=== PATIENT | female | born 1955 | race Caucasian/White ===

== ENCOUNTER → 2025-05-12 | Outpatient (CLI) | payer SELFPAY ==
[2025-05-12 12:38] LABS: Hematocrit 46.3 % (37-47); Hemoglobin 15.7 g/dL (12.0-15.0); Immature Granulocytes Count 0.010 X10^3/uL (0.0-0.0); Mean Corp Hgb Conc 33.9 g/dL (32-36); Mean Corpuscular Volume 95.5 fL (81-99); Mean Platelet Vol. 10.5 fl (6.2-12.0); NRBC Flagged by Analyzer 0 % (0-5); Platelet Count 231 K/mm3 (150-450); RBC Distribution Width CV 13.5 % (11.6-14.6); RBC Distribution Width SD 48.0 fl (35.1-43.9); Red Blood Count 4.85 M/mm3 (4.2-5.4); White Blood Count 7.4 K/mm3 (4.4-11.0)
[2025-05-12 13:43] LABS: AST(SGOT) 27 U/L (<=31); Alanine Aminotransfer ALT/SGPT 22 U/L (<=34); Albumin, Serum 4.2 g/dL (3.4-4.8); Alkaline Phosphatase 84 U/L (35-104); Anion Gap 10 (5-15); BUN 29 mg/dL (4-19); BUN/Creat Ratio 41.2 RATIO (10-20); Calcium,Total 9.8 mg/dL (7.6-11.0); Carbon Dioxide 27.5 mmol/L (21.0-32.0); Chloride 102 mmol/L (98-108); Globulin 2.5 g/dL (2.2-4.2); Glucose 98 mg/dL (70-99); Magnesium 2.4 mg/dL (1.5-2.2); Potassium 4.4 mmol/L (3.3-5.1); Vitamin B12 1114 pg/mL (180-914); Vitamin D,25 Hydroxy 52.7 ng/mL (30-100)
== END | disposition home or self-care (01) ==
LOC: BFHLAB 10:48
PROVIDERS: PCP Nurse Practitioner Family; Referring Provider Nurse Practitioner Family; Visit Provider Nurse Practitioner Family
DX: Z00.01 Encounter for general adult medical examination with abnormal findings (principal)
CPT/HCPCS: 36415; 80053; 82306; 82607; 83735; 85025

== ENCOUNTER → 2025-05-25 | Outpatient (CLI) | payer SELFPAY ==
--- NOTE | 2025-05-25 14:12 | MRI_ITS ---
PROCEDURE: LOWER EXT JOINT ONLY (ROUTINE) 05/25/2025 REASON FOR EXAM: PAIN IN RIGHT HIP TECHNIQUE: Procedure Code: MRILEJ Modality: MR Procedure: LOWER EXT JOINT ONLY (ROUTINE) Multiplanar and multisequence images were obtained without IV contrast administration. 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 The femoral heads show no obvious structural collapse. Increased signal of the superior acetabular labrum. No marrow infiltrative lesions Moderate right hip joint effusion with synovial hypertrophy. Mild left hip joint effusion with no synovial hypertrophy. Soft tissue edema signal seen along the greater trochanteric bursae. Increased signal of the gluteus Medius tendons insertion. Thickened common hamstring tendons insertion showing high signal, right more evident than left. The rest of the visualized muscles appear normal. Mottled marrow signal of the examined bones, possibly osteoporotic. Unremarkable urinary bladder. No pelvic collections. 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 Moderate right hip joint effusion with synovial hypertrophy. Mild left hip joint effusion with no synovial hypertrophy. Bilateral greater trochanteric bursitis. Bilateral gluteus Medius and common hamstring tendonitis. Reading [facility] [address]
--- NOTE | 2025-05-25 14:12 | MRI_ITS ---
PROCEDURE: LOWER EXT JOINT ONLY (ROUTINE) 05/25/2025 REASON FOR EXAM: PAIN IN RIGHT KNEE TECHNIQUE: T1, T2, PD, MRI right knee Multiplanar and multisequence images were obtained without IV contrast administration. COMPARISON: COMPARISON : None FINDINGS: Bone Marrow: There is no bony contusion or occult fracture. There is a 0.6 cm developing osteochondral defect in the medial femoral condyle with no free fragment. Cruciate ligaments: There is increased T2 signal and attenuation in the anterior cruciate ligament without laxity, grade 2 sprain. The posterior cruciate appears intact. Collateral ligaments: The medial collateral ligament appears intact. The lateral collateral ligament complex appears intact. Menisci: The lateral meniscus appears intact. There is a complex tear in the posterior horn and body of the medial meniscus with a horizontal component extending to the tibial surface. Effusion: There is no significant effusion. There is no Cotton's cyst. Extensor mechanism: The distal quadriceps and patellar tendons appear intact. MRI/Lower Ext Joint Only (Routine) IMPRESSION: There is increased T2 signal and attenuation in the anterior cruciate ligament without laxity, grade 2 sprain. There is a complex tear in the posterior horn and body of the medial meniscus w ith a horizontal component extending to the tibial surface. Reading Location: [facility]
== END | disposition home or self-care (01) ==
LOC: MRI 13:51
PROVIDERS: PCP Nurse Practitioner Family; Referring Provider Nurse Practitioner Family; Visit Provider Nurse Practitioner Family
DX: M25.561 Pain in right knee (principal); M25.551 Pain in right hip
CPT/HCPCS: 73721

== ENCOUNTER 2025-07-12 19:51 | Emergency (ER) | payer SELFPAY ==
[2025-07-12 19:51] VITALS: BP 193/110; PULSE 82; RESP 16; TEMP 36.6; O2SAT 99
[2025-07-12 20:21] VITALS: BMI 28.0
--- NOTE | 2025-07-12 20:34 | EDS_ITS ---
HPI History of Present Illness Chief Complaint: Abd Pain Narrative Narrative: 69-year-old female who denies significant past medical history presents with suprapubic to left-sided flank pain that began a few hours ago. Its improved since then. She states that it was more of a sharp stabbing pain that she was having intravaginally and radiating upwards, perhaps more to the left. She denies any fevers or chills, no dysuria or hematuria, no exacerbating or alleviating factors. She did note that she had an episode like this within the last week that only lasted about an hour. She was nauseated but did not vomit. No problems with bowel movements, no diarrhea. [facility] Medical History Atherosclerotic heart disease of [place] coronary artery without angina pectoris Hyperlipidemia History of [place] (myocardial infarction) (~2005) Home Medications ?Medication ?Instructions ?Recorded ?Last Taken ?Type amlodipine 5 mg tablet 5 mg PO DAILY #14 tabs 07/12 Unknown Rx Allergy/AdvReac Type Severity Reaction Status Date / Time Iodinated Contrast Media AdvReac Unknown Difficulty Verified 07/12/25 19:54 (IVP dye) breathing Surgical History History of esophagogastroduodenoscopy (EGD) Scar tissue History of appendectomy Social History Smoking Status: Never smoker substance use type: does not use ROS ROS ED ROS Narrative Review of systems positive for suprapubic to left sided abdominal pain/flank pain. No dysuria or hematuria. No fevers or chills. Positive nausea but no vomiting. EXAM Physical Exam Narrative Exam Narrative: Afebrile. Vital signs noted. Nontoxic-appearing. Cardiovascular exam regular rate and rhythm. Lungs are clear to auscultation bilaterally. Abdomen is soft with minimal tenderness to palpation in the suprapubic area, no rebound or guarding. Positive bowel sounds. No CVA tenderness to percussion bilaterally. Const Vital Signs: 07/12/25 19:51 07/12/25 21:51 Temperature 97.8 F Temperature Source Temporal Pulse Rate 82 70 Respiratory Rate 16 18 Blood Pressure 193/110 H 154/91 H Blood Pressure Mean 137 112 Pulse Ox 99 Oxygen Delivery Method Room Air MDM MDM MDM Narrative Medical decision making narrative: Differential diagnosis includes but not limited to ureterolithiasis versus cystitis versus pyelonephritis versus diverticulitis. History and physical does not support diverticulitis patient not having problems with bowel movements. I reviewed her laboratory work and she has a normal white count of 9.2 with hemoglobin 16.2, hematocrit 45.9, platelet count 201. BMP is remarkable for glucose of 143 with BUN of 36 and creatinine 0.98. Sodium and potassium normal. Urinalysis is negative for ketones, negative for infection with 0-5 WBCs and 0- 5 RBCs. 0 bacteria. I do not feel antibiotics are indicated. I reviewed the radiology report of the CT of the abdomen and pelvis without contrast, there is no obstructive uropathy, no hydronephrosis, no acute process. After Toradol, her pain has improved. I am unsure to the cause of her suprapubic to left flank pain. However, I do feel she can be discharged safely home with follow-up. She had fluctuating blood pressure, initially 193/110, then down to 154/91. She is asymptomatic with this without chest pain or shortness of breath. She was told to keep a log of her blood pressures and she states that she is had readings of 147 with elevated diastolic in the past. Although she is asymptomatic, with her fluctuating blood pressure as high as 188 systolic, she was given an amlodipine 5 mg tablet here and prescription written to take daily for the next 2 weeks. She should follow-up with her primary care provider within the next 1 to 2 weeks. Return instructions to the emergency department were reviewed. Disposition is discharged home in stable condition. History & Record Review Discussion w/independent historian: Patient Additional record(s) reviewed:: Prior ED visit (No prior ED visits) Lab Data Attestation: I reviewed the patient's lab results. Labs: Laboratory Results - last 24 hr 07/12/25 20:30 WBC 9.2 RBC 4.98 Hgb 16.2 H Hct 45.9 MCV 92.2 MCH 32.5 H MCHC 35.3 RDW Std Deviation 45.6 H RDW Coeff of Adolfo 13.4 Plt Count 201 MPV 9.6 Immature Gran % (Auto) 0.300 Neut % (Auto) 87.4 H Lymph % (Auto) 7.9 L Cameron % (Auto) 4.1 Eos % (Auto) 0.1 Baso % (Auto) 0.2 Absolute Neuts (auto) 8.0 H Absolute Lymphs (auto) 0.73 L Nucleated RBC % 0 Sodium 139 Potassium 4.2 Chloride 103 Carbon Dioxide 22.7 Anion Gap 13 BUN 36 H Creatinine 0.98 Estim Creat Clear Calc 47.62 L Est GFR (MDRD) Non-Af 63 BUN/Creatinine Ratio 36.7 H Glucose 143 H Calcium 9.8 Urine Color Yellow Urine Clarity Clear Urine pH 7.0 Ur Specific [place] 1.010 Urine Protein 30 H Urine Glucose (UA) Normal Urine Ketones Negative Urine Occult Blood 50 H Urine Nitrite Negative Urine Bilirubin Negative Urine Urobilinogen Normal Ur Leukocyte Esterase Negative Urine RBC 0-5 SEEN Urine WBC 0-5 SEEN Ur Squamous Epith Cells 0 SEEN Urine Bacteria 0 SEEN Urine Mucus 0 SEEN Radiography Diagnostic Testing: Clinical Impression(s) from Imaging Studies Abdomen/Pelvis CT 07/12/25 20:46 IMPRESSION: No nephrolithiasis or obstructive uropathy. Reading Location: [address] Discharge Plan Triage Chief Complaint: Abd Pain ED Provider: Curt Quiñones Dx/Rx/DC Orders Clinical Impression: Abdominal pain, Flank pain, Elevated blood pressure reading without diagnosis of hypertension Instructions: ED Abdominal Pain Unkn Cause Fem, ED Hypertension, To Be Confirmed, ED Pelvic Pain, Unknown Cause Prescriptions: New amlodipine 5 mg tablet 5 mg PO DAILY Qty: 14 0RF Primary Care Provider: Brooke Richardson Referrals: Brooke Richardson, [facility] [Primary Care Provider, Family Practice] - As soon as possible Activity Restrictions/Additional Instructions: Keep a log of your blood pressures for your primary care provider. You may need to start medication regarding your blood pressure should it be consistently elevated. Return with fever, increased pain, new or worsening symptoms. Print Language: Mongolian Disposition Disposition: Home, Self Care
--- OUTSIDE RECORDS SUMMARY | 2025-07-12 20:37 | XMS RPT_ITS | CCD ---
Author Organization [facility] Care Team Providers Care Wax Pattern Coater Name Role Phone AYLA RENEE Attending Unavailable AYLA RENEE Primary Care Unavailable AYLA RENEE Admitting Unavailable Dylan AUTOMOTIVE REFINISH TECHNICIAN-C, Brooke Primary Care Provider Dylan AUTOMOTIVE REFINISH TECHNICIAN-C, Brooke Attending Provider Dylan AUTOMOTIVE REFINISH TECHNICIAN-C, Brooke Referring Provider Dylan, Brooke Referring Unavailable Dylan, Brooke Primary Care Unavailable Dylan, Brooke Attending Unavailable Dylna, Brooke Referring Unavailable Dylan, Brooke Primary Care Unavailable Dylan, Brooke Attending Unavailable Asaf DIETZ, Harshal Moses Unavailable NONE, NONE Unavailable Unavailable Dylan TRAILER TRUCK DRIVER, Brooke Unavailable Allergies Allergy Classification Reported Allergen(s) Allergy Type Date of Onset Reaction(s) Facility (1 source) Contrast media Drug allergy (disorder) difficulty breathing [facility] Problems Problem Classification Problem Date Documented Da te Episodic/Chronic Joint disorders and dislocations; trauma-related (2 sources) Tear of meniscus of knee; Translations: [Other meniscus derangements, unspecified meniscus, right knee] Onset: 07-06-2025 07-06-2025 Chronic Osteoarthritis (6 sources) Unilateral primary osteoarthritis, right knee; Translations: [Osteoarthrosis, localized, primary, lower leg] Onset: 07-06-2025 07-06-2025 Chronic Other non-traumatic joint disorders (1 source) Pain in right knee; Translations: [Pain in right knee] Onset: 06-07-2025 Episodic Results Test Name Value Interpretation Reference Range Facility Relevant diagnostic tests/la boratory data Narrativeon 07-06-2025 Fall risk assessment no [facility] [employer] Work Phone: MEDS REVIEW Documentation of current medications (procedure) Premise Work Phone: MEDS REVIEWD Medications reviewed with changes [facility] [employer] Work Phone: MRI HX of the right hip and right knee on 05/25/2025 at [facility] Work Phone: XRAY HX of the right hip and right knee on 06/08/2025 at [facility] Work Phone: Magnetic resonance imaging r eportOrdered By: Saul Luong on 05-30-2025 Study report [facility] Imaging Services [address] [place] [address] Lower Ext Joint Only (Routine) MR#: [id number] Acct: [id number] Name: BRODIEEDUAR Jose Rep #: [id number] : 1955 F 69 From: Brandy Luong MD PCP: FREDIS Dong Status: REG CLI Study:Lower Ext Joint Only (Routine) Date of Exam: 05/25/25 Exam# [id number] Ordering Dr: Ra ryan Richardson PROCEDURE: LOWER EXT JOINT ONLY (ROUTINE) 05/25/2025 REASON FOR EXAM: PAIN IN RIGHT KNEE TECHNIQUE: T1, T2, PD, MRI right knee Multiplanar and multisequence images were obtained without IV contrast administration. COMPARISON: COMPARISON : None FINDINGS: Bone Marrow: There is no bony contusion or occult fracture. There is a 0.6 cm developing osteochondral defect in the medial femoral condyle with no free fragment. Cruciate ligaments: There is increased T2 signal and attenuation in the anteriorcruciate ligament without laxity, grade 2 sprain. The posterior cruciate appears intact. Collateral ligaments: The medial collateral ligament appears intact. The lateral collateral ligament complex appears intact. Menisci: The lateral meniscus appears intact. There is a complex tear in the posterior horn and body of the medial meniscus with a horizontal component extending to the tibial surface. Effusion: There is no significant effusion. There is no Cotton's cyst. Extensor mechanism: The distal quadriceps and patellar tendons appear intact. MRI/Lower Ext Joint Only (Routine) IMPRESSION: There is increased T2 signal and attenuation in the anterior cruciate ligament without laxity, grade 2 sprain. There is a complex tear in the posterior horn and body of the medial meniscus with a horizontal component extending to the tibial surface. Reading Location: [place] CC: AUTOMOTIVE REFINISH TECHNICIANRyne Richardson ~ Drosser: Signed [facility] Magnetic resonance imaging r eportOrdered By: Lynne Dhillon on 05-30-2025 Study report [facility] Imaging Services [address] [place] [address] Lower Ext Joint Only (Routine) MR#: [id number] Acct: [id number] Name: EDUAR CALLOWAY Rep #: [id number] : 1955 F 69 From: Corrine Dhillon MD PCP: FREDIS Dong Status: REG CLI Study:Lower Ext Joint Only (Routine) Date of Exam: 05/25/25 Exam# [id number] Ordering Dr: Ra ryan Richardson PROCEDURE: LOWER EXT JOINT ONLY (ROUTINE) 05/25/2025 REASON FOR EXAM: PAIN IN RIGHT HIP TECHNIQUE: Procedure Code: MRILEJ Modality: MR Procedure: LOWER EXT JOINT ONLY (ROUTINE) Multiplanar and multisequence images were obtained without IV contrast administration. 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 The femoral heads show no obvious structural collapse. Increased signal of the superior acetabular labrum. No marrow infiltrative lesions Moderate right hip joint effusion with synovial hypertrophy. Mild left hip joint effusion with no synovial hypertrophy. Soft tissue edema signal seen along the greater trochanteric bursae. Increased signal of the gluteus Medius tendons insertion. Thickened common hamstring tendons insertion showing high signal, right more evident than left. The rest of the visualized muscles appear normal. Mottled marrow signal of the examined bones, possibly osteoporotic. Unremarkable urinary bladder. No pelvic collections. 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 Moderate right hip joint effusion with synovial hypertrophy. Mild left hip joint effusion with no synovial hypertrophy. Bilateral greater trochanteric bursitis. Bilateral gluteus Medius and common hamstring tendonitis. Reading Location: [place] [address] CC: AUTOMOTIVE REFINISH TECHNICIAN-C Brooke Richardson ~ Drosser: Signed [facility] Lower Ext Joint Only (Routin e)on 05-25-2025 Lower Ext Joint Only (Routine) [facility] Imaging Services [address] [place] [address] Lower Ext Joint Only (Routine) MR#: [id number] Acct: [id number] Name: EDUAR CALLOWAY Rep #: [id number] : 1955 F 69 From: Lynne holland MD PCP: FREDIS Dong Status: REG CLI Study: Lower Ext Joint Only (Routine) Date of Exam: 0 05/25/25 Exam# [id number] Ordering Dr: Brooke Richardson PROCEDURE: LOWER EXT JOINT ONLY (ROUTINE) 05/25/2025 REASON FOR EXAM: PAIN IN RIGHT HIP TECHNIQUE: Procedure Code: MRILEJ Modality: MR Procedure: LOWER EXT JOINT ONLY (ROUTINE) Multiplanar and multisequence images were obtained without IV contrast administration. COMPARISON: none FINDINGS: Advanced right and moderate left hips degenerative arthropathic changes evident by marginal osteophytic lipping fibrillation of their articular cartilage, cortical irregularities, subcortical marrow edema and pseudocystic changes of their opposing articular surfaces with narrowed femoroacetabular joints space. The femoral heads show no obvious structural collapse. Increased signal of the superior acetabular labrum. No marrow infiltrative lesions Moderate right hip joint effusion with synovial hypertrophy. Mild left hip joint effusion with no synovial hypertrophy. Soft tissue edema signal seen along the greater trochanteric bursae. Increased signal of the gluteus Medius tendons insertion. Thickened common hamstring tendons insertion showing high signal, right more evident than left. The rest of the visualized muscles appear normal. Mottled marrow signal of the examined bones, possibly osteoporotic. Unremarkable urinary bladder. No pelvic collections. 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 Moderate right hip joint effusion with synovial hypertrophy. Mild left hip joint effusion with no synovial hypertrophy. Bilateral greater trochanteric bursitis. Bilateral gluteus Medius and common hamstring tendonitis. Reading Location: [facility] CC: FREDIS Richardson Drosser: Signed Normal [facility] Lower Ext Joint Only (Routine) [facility] Imaging Services [address] [place] [address] Lower Ext Joint Only (Routine) MR#: [id number] Acct: [id number] Name: EDUAR CALLOWAY Rep #: [id number] : 1955 F 69 From: Saul Luong MD PCP: FREDIS Dong Status: REG CLI Study: Lower Ext Joint Only (Routine) Date of Exam: 0 05/25/25 Exam# [id number] Ordering Dr: Brooke Richardson PROCEDURE: LOWER EXT JOINT ONLY (ROUTINE) 05/25/2025 REASON FOR EXAM: PAIN IN RIGHT KNEE TECHNIQUE: T1, T2, PD, MRI right knee Multiplanar and multisequence images were obtained without IV contrast administration. COMPARISON: COMPARISON : None FINDINGS: Bone Marrow: There is no bony contusion or occult fracture. There is a 0.6 cm developing osteochondral defect in the medial femoral condyle with no free fragment. Cruciate ligaments: There is increased T2 signal and attenuation in the anterior cruciate ligament without laxity, grade 2 sprain. The posterior cruciate appears intact. Collateral ligaments: The medial collateral ligament appears intact. The lateral collateral ligament complex appears intact. Menisci: The lateral meniscus appears intact. There is a complex tear in the posterior horn and body of the medial meniscus with a horizontal component extending to the tibial surface. Effusion: There is no significant effusion. There is no Cotton's cyst. Extensor mechanism: The distal quadriceps and patellar tendons appear intact. MRI/Lower Ext Joint Only (Routine) IMPRESSION: There is increased T2 signal and attenuation in the anterior cruciate ligament without laxity, grade 2 sprain. There is a complex tear in the posterior horn and body of the medial meniscus with a horizontal component extending to the tibial surface. Reading Location: [facility] CC: FREDIS Richardson Drosser: Signed Normal [facility] Absolute lymphocyte countOrd ered By: Brooke Richardson on 05-12-2025 Lymphocytes Auto (Unsp spec) [#/Vol] 1.93 10*3/uL 0.83-4.51 [facility] Absolute neutrophil countOrd ered By: Brooke Richardson on 05-12-2025 Neutrophils (Bld) [#/Vol] 4.7 10*3/uL 2.0-7.7 [facility] Anion gap in Serum or Plasma Ordered By: Brooke Richardson on 05-12-2025 Anion gap [Moles/Vol] 10 mmol/L - [facility] Automated lymphocyte count a s percentage of total leukocytesOrdered By: Brooke Richardson on 05-12-2025 Lymphocytes/100 WBC Auto (Unsp spec) 26.0 % 19-41 [facility] BUN/creatinine ratioOrdered By: Brookegee Richardson on 05-12-2025 Urea nitrogen/Creatinine [Mass ratio] 41.2 mg/mg High 10-20 [facility] Basophil percentageOrdered B y: Brooke Richardson on 05-12-2025 Basophils/100 WBC (Bld) 0.3 % 0-[address] [facility] Bilirubin, totalOrdered By: Brooke Richardson on 05-12-2025 Bilirubin [Mass/Vol] 0.39 mg/dL 0.00-1.30 [facility] CBC W/Diff, Automatedon 04-28 Absolute Lymph 1.93 X10 3/uL Normal 0.83-4.51 [facility] Comment on above: Performed By: #### L 100.0100, L500.4050, L503.0106, L501.5200, L506.1001 #### [facility] [address] [place] [address]. [place], [address] Absolute Neut 4.7 X10 3/uL Normal 2.0-7.7 [facility] Comment on above: Performed By: #### L 100.0100, L500.4050, L503.0106, L501.5200, L506.1001 #### [facility] [address] [place], [address] Basophils/100 WBC (Bld) 0.3 % Normal 0-[address] [facility] Comment on above: Performed By: #### L 100.0100, L500.4050, L503.0106, L501.5200, L506.1001 #### [facility] [address] [place], [address] Eosinophils/100 WBC (Bld) 1.3 % Normal 0-5 [facility] Comment on above: Performed By: #### L 100.0100, L500.4050, L503.0106, L501.5200, L506.1001 #### [facility] [address] [place], [address] Erythrocyte distribution width (RBC) [Ratio] 13.5 % Normal 11.6-14.6 [facility] Comment on above: Performed By: #### L 100.0100, L500.4050, L503.0106, L501.5200, L506.1001 #### [facility] [address] [place], [address] Hematocrit (Bld) [Volume fraction] 46.3 % Normal 37-47 [facility] Comment on above: Performed By: #### L 100.0100, L500.4050, L503.0106, L501.5200, L506.1001 #### [facility] [address] [place], [address] Hemoglobin (Bld) [Mass/Vol] 15.7 g/dL High 12.0-15.0 [facility] Comment on above: Performed By: #### L 100.0100, L500.4050, L503.0106, L501.5200, L506.1001 #### [facility] [address] [place], [address] IG% 0.100 Normal 0.0-0.9 [facility] Comment on above: Result Comment: IG% - Immature Granulocytes (promyelocytes, myelocytes and metamyelocytes) > 1% indicates that a LEFT SHIFT is Present. Performed By: #### L 100.0100, L500.4050, L503.0106, L501.5200, L506.1001 #### [facility] [address] [place], [address] Lymphocytes/100 WBC (Bld) 26.0 % Normal 19-41 [facility] Comment on above: Performed By: #### L 100.0100, L500.4050, L503.0106, L501.5200, L506.1001 #### [facility] [address] [place], [address] MCH (RBC) [Entitic mass] 32.4 pg High 27.0-32.0 [facility] Comment on above: Performed By: #### L 100.0100, L500.4050, L503.0106, L501.5200, L506.1001 #### [facility] [address] [place], [address] MCHC (RBC) [Mass/Vol] 33.9 g/dL Normal 32-36 [facility] Comment on above: Performed By: #### L 100.0100, L500.4050, L503.0106, L501.5200, L506.1001 #### [facility] [address] [place], [address] MCV (RBC) [Entitic vol] 95.5 fL Normal 81-[address] [facility] Comment on above: Performed By: #### L 100.0100, L500.4050, L503.0106, L501.5200, L506.1001 #### [facility] [address] [place], [address] Monocytes/100 WBC (Bld) 8.2 % Normal 0-[address] [facility] Comment on above: Performed By: #### L 100.0100, L500.4050, L503.0106, L501.5200, L506.1001 #### [facility] [address] [place], [address] Neutrophils/100 WBC (Bld) 64.1 % Normal 47-70 [facility] Comment on above: Performed By: #### L 100.0100, L500.4050, L503.0106, L501.5200, L506.1001 #### [facility] [address] [place], [address] Nucleated RBC (Bld) [#/Vol] 0 10*3/uL Normal 0-5 [facility] Comment on above: Performed By: #### L 100.0100, L500.4050, L503.0106, L501.5200, L506.1001 #### [facility] [address] [place], [address] Platelet mean volume (Bld) [Entitic vol] 10.5 fL Normal 6.2-12.0 [facility] Comment on above: Performed By: #### L 100.0100, L500.4050, L503.0106, L501.5200, L506.1001 #### [facility] [address] [place], [address] Platelets (Bld) [#/Vol] 231 10*3/uL Normal 150-450 [facility] Comment on above: Performed By: #### L 100.0100, L500.4050, L503.0106, L501.5200, L506.1001 #### [facility] [address] [place], [address] RBC (Bld) [#/Vol] 4.85 10*6/uL Normal 4.2-5.4 [facility] Comment on above: Performed By: #### L 100.0100, L500.4050, L503.0106, L501.5200, L506.1001 #### [facility] [address] [place], [address] RDW SD 48.0 fl High 35.1-43.9 [facility] Comment on above: Performed By: #### L 100.0100, L500.4050, L503.0106, L501.5200, L506.1001 #### [facility] [address] [place], [address] WBC (Bld) [#/Vol] 7.4 10*3/uL Normal 4.4-11.0 [facility] Comment on above: Performed By: #### L 100.0100, L500.4050, L503.0106, L501.5200, L506.1001 #### [facility] [address] [place], [address] Carbon dioxide, total [Moles /volume] in Central venous bloodOrdered By: Brooke Richardson on 05-12-2025 CO2 [Moles/Vol] 27.5 mmol/L 21.0-32.0 [facility] Chloride assayOrdered By: Ra ryan Richardson on 05-12-2025 Chloride [Moles/Vol] 102 mmol/L 98-108 [facility] Comprehensive Metabolic Prof ilon 05-12-2025 Albumin [Mass/Vol] 4.2 g/dL Normal 3.4-4.8 [facility] Comment on above: Performed By: #### L 100.0100, L500.4050, L503.0106, L501.5200, L506.1001 #### [facility] [address] [place], [address] Albumin/Globulin [Mass ratio] 1.7 {ratio} Normal 0.9-2.4 [facility] Comment on above: Performed By: #### L 100.0100, L500.4050, L503.0106, L501.5200, L506.1001 #### [facility] [address] [place], [address] ALK PHOS 84 U/L Normal 35-104 [facility] Comment on above: Performed By: #### L 100.0100, L500.4050, L503.0106, L501.5200, L506.1001 #### [facility] [address] [place], [address] ALT [Catalytic activity/Vol] 22 U/L Normal <=34 [facility] Comment on above: Performed By: #### L 100.0100, L500.4050, L503.0106, L501.5200, L506.1001 #### [facility] [address] [place], [address] AST [Catalytic activity/Vol] 27 U/L Normal <=31 [facility] Comment on above: Performed By: #### L 100.0100, L500.4050, L503.0106, L501.5200, L506.1001 #### [facility] [address] [place], [address] Bilirubin [Mass/Vol] 0.39 mg/dL Normal 0.00-1.30 [facility] Comment on above: Performed By: #### L 100.0100, L500.4050, L503.0106, L501.5200, L506.1001 #### [facility] [address] [place], [address] BUN/CRE 41.2 RATIO High 10-20 [facility] Comment on above: Performed By: #### L 100.0100, L500.4050, L503.0106, L501.5200, L506.1001 #### [facility] [address] [place], [address] Calcium [Mass/Vol] 9.8 mg/dL Normal 7.6-11.0 [facility] Comment on above: Performed By: #### L 100.0100, L500.4050, L503.0106, L501.5200, L506.1001 #### [facility] [address] [place], [address] Chloride [Moles/Vol] 102 mmol/L Normal 98-108 [facility] Comment on above: Performed By: #### L 100.0100, L500.4050, L503.0106, L501.5200, L506.1001 #### [facility] [address] [place], [address] CO2 [Moles/Vol] 27.5 mmol/L Normal 21.0-32.0 [facility] Comment on above: Performed By: #### L 100.0100, L500.4050, L503.0106, L501.5200, L506.1001 #### [facility] [address] [place], [address] Creatinine [Mass/Vol] 0.69 mg/dL Low 0.70-1.20 [facility] Comment on above: Performed By: #### L 100.0100, L500.4050, L503.0106, L501.5200, L506.1001 #### [facility] [address] [place], [address] GAP 10 Normal 5-15 [facility] Comment on above: Performed By: #### L 100.0100, L500.4050, L503.0106, L501.5200, L506.1001 #### [facility] [address] [place], [address] GFR/1.73 sq M.predicted among non-blacks MDRD (S/P/Bld) [Vol rate/Area] 94 mL/min/{1.73_m2} Normal >60 [facility] Comment on above: Result Comment: mL/m in/1.73m2 CKD-EPI Creatinine Equation (2020) Performed By: #### L 100.0100, L500.4050, L503.0106, L501.5200, L506.1001 #### [facility] [address] [place], [address] Globulin (S) [Mass/Vol] 2.5 g/dL Normal 2.2-4.2 [facility] Comment on above: Performed By: #### L 100.0100, L500.4050, L503.0106, L501.5200, L506.1001 #### [facility] [address] [place], [address] Glucose [Mass/Vol] 98 mg/dL Normal 70-99 [facility] Comment on above: Performed By: #### L 100.0100, L500.4050, L503.0106, L501.5200, L506.1001 #### [facility] [address] [place], [address] Potassium [Moles/Vol] 4.4 mmol/L Normal 3.3-5.1 [facility] Comment on above: Performed By: #### L 100.0100, L500.4050, L503.0106, L501.5200, L506.1001 #### [facility] [address] [place], [address] Sodium [Moles/Vol] 139 mmol/L Normal 133-145 [facility] Comment on above: Performed By: #### L 100.0100, L500.4050, L503.0106, L501.5200, L506.1001 #### [facility] [address] [place], [address] T PROT 6.8 g/dL Normal 5.9-8.4 [facility] Comment on above: Performed By: #### L 100.0100, L500.4050, L503.0106, L501.5200, L506.1001 #### [facility] [address] [place], [address] Urea nitrogen [Mass/Vol] 29 mg/dL High 4-19 [facility] Comment on above: Performed By: #### L 100.0100, L500.4050, L503.0106, L501.5200, L506.1001 #### [facility] [address] [place], [address] Eosinophil percentageOrdered By: Brooke Richardson on 05-12-2025 Eosinophils/100 WBC (Bld) 1.3 % 0-5 [facility] Erythrocyte distribution wid th ratioOrdered By: [facility] on 05-12-2025 Erythrocyte distribution width (RBC) [Ratio] 13.5 % 11.6-14.6 [facility] Erythrocyte distribution wid th standard deviationOrdered By: Worcester Dylan on 05-12-2025 Erythrocyte distribution width (RBC) [Ratio] 48.0 fl High 35.1-43.9 [facility] Glomerular filtration rate ( GFR) estimation/1.73 sq m using serum, plasma, or whole bOrdered By: Brookegee Richardson on 05-12-2025 GFR/1.73 sq M.predicted among non-blacks MDRD (S/P/Bld) [Vol rate/Area] 94 mL/min/{1.73_m2} >60 [facility] Comment on above: mL/min/1.73m2 CKD-EP I Creatinine Equation (2020) Hematocrit Auto (Bld) [Volum e fraction]Ordered By: Brooke Richardson on 05-12-2025 Hematocrit (Bld) [Volume fraction] 46.3 % 37-47 [facility] Hemoglobin measurementOrdere d By: Brooke Richardson on 05-12-2025 Hemoglobin (Bld) [Mass/Vol] 15.7 g/dL High 12.0-15.0 [facility] Immature granulocytes/100 WB C Auto (Bld)Ordered By: Brooke Richardson on 05-12-2025 Immature granulocytes/100 WBC (Bld) 0.100 % 0.0-0.9 [facility] Comment on above: IG% - Immature Granu locytes (promyelocytes, myelocytes and metamyelocytes) > 1% indicates that a LEFT SHIFT is Present. Laboratory - Chemistry and C hemistry - challengeOrdered By: Brooke Richardson on 05-12-2025 AST [Catalytic activity/Vol] 27 U/L <32 [facility] MCV (mean corpuscular volume ) determinationOrdered By: Brooke Richardson on 05-12-2025 MCV (RBC) [Entitic vol] 95.5 fL 81-[address] [facility] Magnesiumon 05-12-2025 Magnesium [Mass/Vol] 2.4 mg/dL High 1.5-2.2 [facility] Comment on above: Performed By: #### L 100.0100, L500.4050, L503.0106, L501.5200, L506.1001 #### [facility] [address] [place], [address] Magnesium measurement (mass/ volume)Ordered By: Brooke Richardson on 05-12-2025 Magnesium (Unsp spec) [Mass/Vol] 2.4 mg/dL High 1.5-2.2 [facility] Mean corpuscular hemoglobin (MCH) determinationOrdered By: Brooke Richardson on 05-12-2025 MCH (RBC) [Entitic mass] 32.4 pg High 27.0-32.0 [facility] Mean corpuscular hemoglobin concentration (MCHC) determinationOrdered By: Brooke Richardson on 05-12-2025 MCHC (RBC) [Mass/Vol] 33.9 g/dL 32-36 [facility] Mean platelet volume determi nationOrdered By: Brooke Richardson on 05-12-2025 Platelet mean volume (Bld) [Entitic vol] 10.5 fL 6.2-12.0 [facility] Monocyte percentageOrdered B y: Brooke Richardson on 05-12-2025 Monocytes/100 WBC (Bld) 8.2 % 0-[address] [facility] Neutrophil percentageOrdered By: Brooke Richardson on 05-12-2025 Neutrophils/100 WBC (Bld) 64.1 % 47-70 [facility] Nucleated red blood cell per centageOrdered By: Brooke Richardson on 05-12-2025 Nucleated RBC/100 WBC (Bld) [Ratio] 0 % 0-5 [facility] Platelet countOrdered By: Ra ryan Richardson on 05-12-2025 Platelets (Bld) [#/Vol] 231 10*3/uL 150-450 [facility] Potassium measurement (mass/ volume)Ordered By: Brooke Richardson on 05-12-2025 Potassium (Unsp spec) [Mass/Vol] 4.4 mmol/L 3.3-5.1 [facility] RBC Auto (Bld) [#/Vol]Ordere d By: Brooke Richardson on 05-12-2025 RBC (Bld) [#/Vol] 4.85 10*6/uL 4.2-5.4 [facility] Serum creatinine measurement (mass/volume)Ordered By: Brooke Richardson on 05-12-2025 Creatinine [Mass/Vol] 0.69 mg/dL Low 0.70-1.20 [facility] Serum globulin measurementOr dered By: Brooke Richardson 05-12-2025 Globulin (S) [Mass/Vol] 2.5 g/dL 2.2-4.[address] [facility] Serum glucose measurement (m ass/volume)Ordered By: Brooke Richardson on 05-12-2025 Glucose [Mass/Vol] 98 mg/dL 70-99 [facility] Serum or plasma alanine grey otransferase (ALT) measurementOrdered By: Brooke Richardson 05-12-2025 ALT [Catalytic activity/Vol] 22 U/L <35 [facility] Serum or plasma albumin lela urement (mass/volume)Ordered By: Brooke Richardson 05-12-2025 Albumin [Mass/Vol] 4.2 g/dL 3.4-4.8 [facility] Serum or plasma albumin/glob ulin mass ratioOrdered By: Brooke Richardson on 05-12-2025 Albumin/Globulin [Mass ratio] 1.7 {ratio} 0.9-2.4 [facility] Serum or plasma alkaline chichi sphatase measurementOrdered By: Brooke Richardson on 05-12-2025 ALP [Catalytic activity/Vol] 84 U/L 35-104 [facility] Serum or plasma calcium lela urement (mass/volume)Ordered By: Brooke Richardson on 05-12-2025 Calcium [Mass/Vol] 9.8 mg/dL 7.6-11.0 [facility] Serum or plasma urea nitroge n measurement (mass/volume)Ordered By: Brooke Richardson on 05-12-2025 Urea nitrogen [Mass/Vol] 29 mg/dL High 4-19 [facility] Sodium levelOrdered By: Christie Richardson on 05-12-2025 Sodium [Moles/Vol] 139 mmol/L 133-145 [facility] Total proteinOrdered By: Colin Richardson on 05-12-2025 Protein [Mass/Vol] 6.8 g/dL 5.9-8.4 [facility] Vitamin B12on 05-12-2025 Cobalamin (Vitamin B12) [Mass/Vol] 1114 pg/mL High 180-914 [facility] Comment on above: Performed By: #### L 100.0100, L500.4050, L503.0106, L501.5200, L506.1001 #### [facility] [address] [place], [place] [address], [id number] Vitamin B12 ser/plasOrdered By: Brooke Richardson on 05-12-2025 Cobalamin (Vitamin B12) [Mass/Vol] 1114 pg/mL High 180-914 [facility] Vitamin D,25 Hydroxyon 05-12 Vitamin D 25-OH 52.7 ng/mL Normal 30-100 [facility] Comment on above: Result Comment: Ila min D Status Deficiency: <20 ng/mL (50nmol/L) Insufficiency: 20-30 ng/mL (50-75 nmol/L) Sufficiency: 30-100 ng/mL (75-250 nmol/L) Toxicity: >100 ng/mL (>250 nmol/L) Performed By: #### L 100.0100, L500.4050, L503.0106, L501.5200, L506.1001 #### [facility] [address] [place], [address] White blood cell (WBC) count Ordered By: Brooke Richardson on 05-12-2025 WBC (Bld) [#/Vol] 7.4 10*3/uL 4.4-11.0 [facility] EMERGENCY REPORTon EMERGENCY REPORT [facility] EMERGENCY ROOM REPORT NAME ACCOUNT SEX AGE ADMIT DISCHARGE PT MED. RECORD# NUMBER DATE DATE TYPE EDUAR CALLOWAY [id number] F 65 07/13/21 07/13/21 3 M [id number] ROOM: ER DATE OF : 1955 DICTATING PHYSICIAN: Ayla Aviles CHIEF COMPLAINT: Cough occasionally productive of sputum, weakness, intermittent fevers as high as 100, diarrhea, body aches, and decreased appetite x10 days. HISTORY OF PRESENT ILLNESS: She thinks she probably has COVID. She is also complaining of a headache. She said it is all getting better, but her cough has gotten a little bit worse. She is eating and drinking. The diarrhea has subsided. No vomiting or abdominal pain. PAST MEDICAL HISTORY: None. PAST SURGICAL HISTORY: None. MEDICATIONS: See nurse's note. FAMILY HISTORY: Noncontributory. SOCIAL HISTORY: Negative for alcohol, tobacco or illicit drug abuse. REVIEW OF SYSTEMS: As stated above. PHYSICAL EXAMINATION: VITAL SIGNS: Blood pressure is 142/83, pulse 84, respiratory rate 18, temperature 98.3, and oxygen saturation 98% on room air. GENERAL: She is awake, alert, nontoxic, and in no acute distress. HEENT: Head is normocephalic, atraumatic. Pupils are equal and reactive to light bilaterally. Mucous membranes are moist. Trachea is midline. NECK: Neck is supple. No anterior or posterior cervical lymphadenopathy. HEART: Heart rate and rhythm are regular without murmur, gallop or rub. LUNGS: Lungs are clear to auscultation bilaterally without wheezes, rales or rhonchi. ABDOMEN: Abdomen is soft. No tenderness, guarding, rebound, or rigidity. SKIN: Skin is warm and dry without cyanosis, ecchymosis, petechiae, or purpura. DIAGNOSTIC DATA: She has no white count elevation and minimal to no left shift. Electrolytes are essentially normal. Troponin is negative. She is COVID negative on rapid but suspect the long-acting one to be positive. EKG shows normal sinus rhythm at [address]-segment elevation or depression. Page 1 of 2 EDUAR CALLOWAY Emergency Room Report EDUAR CALLOWAY : 1955 EMERGENCY DEPARTMENT COURSE AND TREATMENT: At this time, she is not hypoxic. She wants to go home. I gave her a shot of Rocephin here and discharged her on Augmentin and prednisone. Follow up with the family doctor in 2 days. Return for increasing, worsening or new symptoms. DIAGNOSIS: Pneumonia. Dictated By: Ayla Aviles DO 07/13/21 11:43 JOB #: [id number] Transcribed By: diego 07/15/21 11:38 Electronically signed by: E-Sign: AYLA AVILES MD 07/18/21 11:48 Page 2 of 2 EDUAR CALLOWAY Emergency Room Report Normal [facility] BMP with eGFRon 07-13-2021 AGE 65 years Normal [facility] Comment on above: Performed By: #### 2 74653 #### [facility],[address] [place] [address] Anion gap [Moles/Vol] 14 mmol/L Normal - 20 [facility] Comment on above: Performed By: #### 2 49399 #### [facility],[address] [place], [place] [id number] BMP with eGFR Normal [facility] Comment on above: Result Comment: BASI C METABOLIC PANEL Performed By: #### 2 09526 #### [facility],[address] [place], [place] [id number] Calcium [Mass/Vol] 8.3 mg/dL Low 8.5 - 10.1 [facility] Comment on above: Performed By: #### 2 82334 #### [facility],[address] [place] [address] Chloride [Moles/Vol] 101 mmol/L Normal 98 - 107 [facility] Comment on above: Performed By: #### 2 72234 #### [facility],[address] [place] [address] CO2 [Moles/Vol] 24.6 mmol/L Normal 21.0 - 32.0 [facility] Comment on above: Performed By: #### 2 93704 #### [facility],[address] [place], [place] [id number] Creatinine [Mass/Vol] 0.87 mg/dL Normal 0.55 - 1.02 [facility] Comment on above: Performed By: #### 2 04709 #### [facility],[address] [place] [address] GFR/1.73 sq M.predicted among non-blacks MDRD (S/P/Bld) [Vol rate/Area] mL/min/{1.73_m2} Normal 60 - 999 [facility] Comment on above: Performed By: #### 2 90332 #### [facility],[address] [place], [place] [address] Result Comment: ACCO RDING TO THE NATIONAL KIDNEY DISEASE EDUCATION PROGRAM(NKDE), A NORMAL eGFR IS A VALUE GREATER THAN OR EQUAL TO 60 ML/MIN/1.73 SQ METERS. CHRONIC KIDNEY DISEASE: <60mL/MIN/1.73 SQ METERS KIDNEY FAILURE: <15mL/MIN/1.73 SQ METERS THIS TEST SHOULD ONLY BE USED FOR PATIENTS 18 YEARS OF AGE AND OLDER. Glucose [Mass/Vol] 116 mg/dL High 74 - 106 [facility] Comment on above: Performed By: #### 2 57166 #### [facility],[address] [place] [address] Potassium [Moles/Vol] 4.0 mmol/L Normal 3.5 - 5.1 [facility] Comment on above: Performed By: #### 2 68575 #### [facility],[address] [place] [address] Sodium [Moles/Vol] 136 mmol/L Normal 136 - 145 [facility] Comment on above: Performed By: #### 2 65894 #### [facility],[address] [place] [address] Urea nitrogen [Mass/Vol] 12 mg/dL Normal 7 - 18 [facility] Comment on above: Performed By: #### 2 50544 #### [facility],[address] [place] [address] CBC + DIFFon 07-13-2021 Baso # 0.00 x10EE3/UL Normal 0.00 - 0.10 [facility] Comment on above: Performed By: #### 2 50025 #### [facility],[address] [place] [address] Basophils/100 WBC (Bld) 0.3 % Normal 0.0 - 2.0 [facility] Comment on above: Performed By: #### 2 27217 #### [facility],[address] [place] [address] CBC + DIFF Normal [facility] Comment on above: Result Comment: CBC- COMPLETE BLOOD COUNT Performed By: #### 2 12149 #### [facility],[address] [place] [address]98 EO # 0.00 x10EE3/UL Normal 0.00 - 0.50 [facility] Comment on above: Performed By: #### 2 20355 #### [facility],[address] [place] [address] Eosinophils/100 WBC (Bld) 0.3 % Normal 0.0 - 7.0 [facility] Comment on above: Performed By: #### 2 28188 #### [facility],[address] [place] [address] Erythrocyte distribution width (RBC) [Ratio] 13.4 % Normal 12.0 - 15.6 [facility] Comment on above: Performed By: #### 2 86917 #### [facility],[address] [place] [address] Hematocrit (Bld) [Volume fraction] 43.7 % Normal 34.0 - 46.0 [facility] Comment on above: Performed By: #### 2 49825 #### [facility],[address] [place] [address] Hemoglobin (Bld) [Mass/Vol] 15.5 g/dL Normal 12.0 - 16.0 [facility] Comment on above: Performed By: #### 2 17857 #### [facility],[address] [place] [address] Lymph # 0.70 x10EE3/UL Low 0.80 - 2.80 [facility] Comment on above: Performed By: #### 2 75987 #### [facility],[address] [place] [address] Lymphocytes/100 WBC (Bld) 14.5 % Low 20.0 - 45.0 [facility] Comment on above: Performed By: #### 2 93480 #### [facility],[address] [place], [place] [phone] MANUAL DIFF N/A Normal [facility] Comment on above: Performed By: #### 2 72401 #### [facility],[address] [place], [place] [id number] MCH (RBC) [Entitic mass] 32 pg Normal 27 - 33 [facility] Comment on above: Performed By: #### 2 88227 #### [facility],[address] [place], [place] [phone] MCHC 36 X10 3 Normal 32 - 36 [facility] Comment on above: Performed By: #### 2 61997 #### [facility],[address] [place], [place] [phone] MCV (RBC) [Entitic vol] 91 fL Normal 80 - 99 [facility] Comment on above: Performed By: #### 2 54865 #### [facility],[address] [place] [address] [place] # 0.40 x10EE3/UL Normal 0.20 - 1.00 [facility] Comment on above: Performed By: #### 2 03075 #### [facility],[address] [place] [address] MONOS % 8.7 % Normal 0.0 - 10.0 [facility] Comment on above: Performed By: #### 2 93645 #### [facility],[address] [place] [address] Morphology Dhruv (Bld) [Interp] N/A Normal [facility] Comment on above: Result Comment: {CD] Performed By: #### 2 24608 #### [facility],[address] [place] [address] Neut # 3.90 x10EE3/UL Normal 1.50 - 7.10 [facility] Comment on above: Performed By: #### 2 61865 #### [place] [address] Neutrophils/100 WBC (Bld) 76.2 % High 46.0 - 76.0 [facility] Comment on above: Performed By: #### 2 22274 #### [facility],[address] [place] [address] PLATELET 219 x10EE3/UL Normal 150 - 450 [facility] Comment on above: Performed By: #### 2 39159 #### [facility],[address] [place] [address] Platelet mean volume (Bld) [Entitic vol] 8.4 fL Normal 6.6 - 10.5 [facility] Comment on above: Result Comment: AUTO MATED DIFFERENTIAL Performed By: #### 2 09704 #### [facility],[address] [place] [address] RBC 4.81 x 10EE6/UL Normal 4.10 - 5.30 [facility] Comment on above: Performed By: #### 2 65613 #### [facility],[address] [place] [address] WBC 5.1 x 10EE3/UL Normal 4.5 - 10.8 [facility] Comment on above: Performed By: #### 2 10429 #### [facility],[address] [place] [address] CHEST 1 VIEWon 07-13-2021 CHEST 1 VIEW [place] [address] Patient: EDUAR CALLOWAY Phone#: : 1955 Age: 65 Gender: F Pt. Type: ER Account: [id number] Location: [facility] Ordering: DR. AYLA AVILES Exam Date: 07/13/2021/10:19 Family Phys: Charge Code: [id number] Physician: [place] Order #: [id number] DLP Dose#: PROCEDURE: X-RAY CHEST 1 VIEW COMPARISON: None. INDICATIONS: Cough. FINDINGS: LUNGS: Chronic interstitial changes. Subtle patchy asymmetric densities in the mid and lower lung zones. VASCULATURE: Normal. Unremarkable pulmonary vasculature. CARDIAC: Normal. No cardiac silhouette abnormality or cardiomegaly. MEDIASTINUM: Normal. No visible mass or adenopathy. PLEURA: Normal. No effusion or pleural thickening. BONES: Degenerative changes of the spine OTHER: Negative. CONCLUSION: 1. Subtle asymmetric densities in the mid and lower lung zones may represent atelectasis versus infiltrates. Dictated by: Phuong Desai MD on 07/13/2021 at 21:02 Approved by: Phuong Desai MD on 07/13/2021 at 21:04 Normal [facility] CORONAVIRUS (SARS) ANTIGEN T ESTon 07-13-2021 EXTERNAL QC DONE? YES Normal [facility] Comment on above: Performed By: #### 2 57063 #### [facility],[address] [place] [address] 85947 INTERNAL CONTROL PASS Normal [facility] Comment on above: Performed By: #### 2 57525 #### [facility],[address] [place] [address]341 SARS ANTIGEN Negative Normal NORMAL: NEGATIVE [facility] Comment on above: Performed By: #### 2 32996 #### [facility],[address] [place] [address] 10504 SEND TO ? YES Normal [facility] Comment on above: Result Comment: SARS -CoV-2 THIS TEST IS BEING USED UNDER THE FDA EUA PROCEDURE. THIS ASSAY HAS BEEN VALIDATED AT [facility] FOR USE WITH NASAL AND NASOPHARYNGEAL SWAB SPECIMENS. INTERPRETIVE DATA TEST RESULTS SHOULD ALWAYS BE CONSIDERED IN THE CONTEXT OF CLINICAL OBSERVATIONS AND EPIDEMIOLOGICAL DATA IN MAKING FINAL DIAGNOSIS AND PATIENT MANAGEMENT DECISIONS. PATIENT MANAGEMENT SHOULD FOLLOW CURRENT CDC GUIDELINES. THE NEFTALY SARS ANTIGEN [place] DOES NOT DIFFERENTIATE BETWEEN SARS-CoV & SARS-CoV-2. A POSITIVE TEST RESULT INDICATES THE PRESENCE OF SARS-CoV-2 NUCLEOCAPSID PROTEIN ANTIGEN, AND THE PATIENT IS INFECTED WITH THE VIRUS AND PRESUMED TO BE CONTAGIOUS. A NEGATIVE TEST RESULT FOR THIS TEST MEANS THAT SARS-CoV-2 NUCLEOCAPSID PROTEIN ANTIGEN WAS NOT PRESENT IN THE SPECIMEN ABOVE THE LIMIT OF DETECTION. HOWEVER, A NEGATIVE RESULT DOES NOT RULE OUT COVID-19 AND SHOULD NOT BE USED THE SOLE BASIS FOR TREATMENT OR PATIENT MANAGEMENT DECISIONS. A NEGATIVE RESULT DOES NOT EXCLUDE THE POSSIBILITY OF COVID-19. NEGATIVE RESULTS, FROM PATIENTS WITH SYMPTOM ONSET BEYOND FIVE DAYS, SHOULD BE TREATED PRESUMPTIVE AND CONFIRMATION WITH A MOLECULAR ASSAY, IF NECESSARY, FOR PATIENT MANAGEMENT, MAY BE PERFORMED. WHEN DIAGNOSTIC TESTING IS NEGATIVE, THE POSSIBLILTY OF A FALSE NEGATIVE RESULT SHOULD BE CONSIDERED IN THE CONTEXT OF A PATIENT'S RECENT EXPOSURES AND THE PRESENCE OF CLINICAL SIGNS AND SYMPTOMS CONSISTENT WITH COVID-19. THE POSSIBILITY OF A FALSE NEGATIVE RESULT SHOULD ESPECIALLY BE CONSIDERED IF THE PATIENT'S RECENT EXPOSURES OR CLINICAL PRESENTATION INDICATE THAT COVID-19 IS LIKELY, AND DIAGNOSTIC TESTS FOR OTHER CAUSES OF ILLNESS (e.g., OTHER RESPIRATORY ILLNESS) ARE NEGATIVE. IF COVID-19 IS STILL SUSPECTED BASED ON EXPOSURE HISTORY TOGETHER WITH OTHER CLINICAL FINDINGS, RE-TESTING SHOULD BE CONSIDERED BY HEALTHCARE PROVIDERS IN CONSULTATION WITH PUBLIC HEALTH AUTHORITIES. Performed By: #### 2 21540 #### [facility],[address] [place] [address] NT-proBNPon 07-13-2021 Natriuretic peptide B (Bld) [Mass/Vol] 96 pg/mL Normal 0 - 125 [facility] Comment on above: Performed By: #### 2 07344 #### [facility],[address] [place], [place] [address] TROPONIN I, HIGH SENSITIVITY on 07-13-2021 HS TROPONIN 9.3 pg/mL Normal 0.0 - 51.4 [facility] Comment on above: Performed By: #### 2 31509 #### [facility],[address] [place] [address] Vital Signs Date Time Vital Sign Value Performing Clinician Faci lity 07-06-2025 08:55-0400 Body height 154 cm Harshal Ron MD Work Phone: [facility] 07-06-2025 08:55-0400 Body height 153.67 cm Harshal Ron MD Work Phone: [facility] 07-06-2025 08:55-0400 Body mass index (BMI) [Ratio] 29.5 kg/m2 Harshal Ron MD Work Phone: [facility] 07-06-2025 08:55-0400 Body weight 70 kg Harshal Ron MD Work Phone: [facility] 07-06-2025 08:55-0400 Body weight 69.4 kg Harshal Ron MD Work Phone: [facility] 07-06-2025 08:55-0400 BP SITE #1 Harshal Ron MD Work Phone: [facility] 07-06-2025 08:55-0400 BP SITE #2 Harshal Ron MD Work Phone: [facility] 07-06-2025 08:55-0400 Diastolic blood pressure 86 mm[Hg] Harshal Ron MD Work Phone: [facility] 07-06-2025 08:55-0400 Diastolic blood pressure 80 mm[Hg] Harshal Ron MD Work Phone: [facility] 07-06-2025 08:55-0400 Heart rate 72 /min Harshal Ron MD Work Phone: [facility] 07-06-2025 08:55-0400 HGHTCHNVIS Harshal Ron MD Work Phone: [facility] 07-06-2025 08:55-0400 Systolic blood pressure 145 mm[Hg] Harshal Ron MD Work Phone: [facility] 07-06-2025 08:55-0400 Systolic blood pressure 147 mm[Hg] Harshal Ron MD Work Phone: [facility] 07-06-2025 08:55-0400 VITALSDONE Harshal Ron MD Work Phone: [facility] Encounters Encounter Date Encounter Type Care Provider Facility Start: 07-06-2025 In-person encounter Harshal olguin MD Work Phone: [facility] Work Phone: Start: 07-06-2025 Visit out of hours Harshal Hubbard MD Work Phone: [facility]. Work Phone: Start: 06-14-2025 Encounter for genera l adult medical examination with abnormal findings Brooke Richardson [facility] Start: 05-25-2025 End: 05-25-2025 ambulatory Brooke Richardson AUTOMOTIVE REFINISH TECHNICIAN-C Work Phone: -[facility] Start: 05-25-2025 End: 05-25-2025 Patient encounter procedure Brooke Richardson AUTOMOTIVE REFINISH TECHNICIAN-C -MRI - [facility] Work Phone: Start: 05-25-2025 End: 05-25-[facility] Start: 05-12-2025 End: 05-12-2025 ambulatory Brooke Richardson AUTOMOTIVE REFINISH TECHNICIAN-C Work Phone: -[facility] Start: 05-12-2025 End: 05-12-2025 Patient encounter procedure Brooke Richardson AUTOMOTIVE REFINISH TECHNICIAN-C -[facility] Start: 05-12-2025 End: 05-12-2025 ambulatory [facility] Facility:[facility] Start: 07-13-2021 End: 07-13-2021 Emergency department patient visit AYLA Garcia [facility] Procedures Date Procedure Procedure Detail Performing Clinician Start: 07-06-2025 Blood pressure outsi de of normal parameters - follow-up documented Harshal Ron MD Work Phone: Start: 07-06-2025 Osteoarthritis symptoms&funcjal status asses Harshal Ron MD Work Phone: Start: 07-06-2025 BMI documented as ab ove normal parameters - follow-up documented Harshal Ron MD Work Phone: Start: 07-06-2025 Current tobacco non- user cad cap copd pv dm Harshal Ron MD Work Phone: Start: 07-06-2025 Documentation of cur rent medications Harshal Ron MD Work Phone: Start: 07-06-2025 Pain assessment docu mented as positive - no follow-up/reason not given Harshal Ron MD Work Phone: Start: 05-25-2025 MRI of joint of lowe r extremity Brooke Richardson AUTOMOTIVE REFINISH TECHNICIAN-C Work Phone: Start: 05-12-2025 Vitamin D, 25-hydrox y measurement Brooke Richardson AUTOMOTIVE REFINISH TECHNICIAN-C Work Phone: Comment on above: Vitamin D StatusDefi ciency: <20 ng/mL (50nmol/L)Insufficiency: 20-30 ng/mL (50-75 nmol/L)Sufficiency: 30-100 ng/mL (75-250 nmol/L)Toxicity: >100 ng/mL (>250 nmol/L) Payers Date Payer Category Payer Unknown [id number] 2025 Self-pay Unknown [id number] Unknown [id number] Social History Date Type Detail Facility Tobacco smoking stat [facility] Unknown if ever smoked [facility] Work Phone: Start: 1955 Sex Assigned At Female W [facility] Start: 07-06-2025 social history revie wed [employer] [facility] Work Phone: Start: 07-06-2025 Tobacco smoking status Never s moked tobacco (finding) [facility] Work Phone: Mental Status Date Assessment Result Facility 07-06-2025 Cognitive Function [facility] Work Phone: Evaluation note Note Date & Type Note Facility Evaluation note No assessment information availa [facility] Work Phone: Reason for referral (narrative) Note Date & Type Note Facility Reason for referral (narrative) No reason for referral information available [facility] Work Phone: Summary Purpose Family History Family Member Condition Full Brother Heart disease Full Brother Diabetes - insulin d ependent Full Sister High blood pressure Full Sister Diabetes - non-insul in dependent Father Diabetes - insulin d ependent Father Heart disease Father Mother High blood pressure Mother Bleeding disorder Mother Advance Directives No Advanced Directives Records FoundNo Advanced Directives Records Found No Information Available Chief Complaint and Reason for Visit Chief Complaint Admit Date RT HIP AND RT KNEE PAIN May 25 1:46pm Additional Source Comments INFORMATION SOURCE (unrecogn ized section and content) DATE CREATED AUTHOR 07/19/2021 [facility] DATE CREATED AUTHOR AUTHOR'S ORGANIZ ATION 06/15/2025 [facility] Care Teams (unrecognized sec tion and content) Team Status: Active Member Role/Relationship Status Dates Brooke Richardson AUTOMOTIVE REFINISH TECHNICIAN-C Primary Care Provider Active Team Status: Inactive Member Role/Relationship Status Dates Brooke Richardson AUTOMOTIVE REFINISH TECHNICIAN-C Primary Care Provider Active Start: May 12, 2025 End: May 12, 2025 Brooke Richardson AUTOMOTIVE REFINISH TECHNICIAN-C Attending Provider Active St art: May 12, 2025 End: May 12, 2025 Brooke Richardson AUTOMOTIVE REFINISH TECHNICIAN-C Referring Provider Active St art: May 12, 2025 End: May 12, 2025 Team Status: Inactive Member Role/Relationship Status Dates Brooke Richardson NP-C Primary Care Provider Active Start: May 25, 2025 End: May 25, 2025 Brooke Richardson AUTOMOTIVE REFINISH TECHNICIAN-C Attending Provider Active St art: May 25, 2025 End: May 25, 2025 Brooke Richardson AUTOMOTIVE REFINISH TECHNICIAN-C Referring Provider Active St art: May 25, 2025 End: May 25, 2025 Goals (unrecognized section and content) Goals may be documented in a n alternate sectionGoals may be documented in an alternate section No Information Available REASON FOR VISIT (unrecogniz ed section and content) right hip pain, New - 1st vi sit with practice FOR RECORDS PERTAINING TO PATIENTS WHO ARE OR HAVE BEEN ENROLLED IN A CHEMICAL DEPENDENCY/SUBSTANCEABUSE PROGRAM, SOME INFORMATION MAY BE OMITTED. This clinical summary was aggregated from multiple sources. Caution should be exercised in using it in the provision of clinical care. This summary normalizes information from multiple sources, and as a consequence, information in this document may materially change the coding, format and clinical context of patient data. In addition, data may be omitted in some cases. CLINICAL DECISIONS SHOULD BE BASED ON THE PRIMARY CLINICAL RECORDS. [employer] provides no warranty or guarantee of the accuracy or completeness of information in this document.
[2025-07-12 20:39] LABS: Mucous, Urine 0 SEEN /hpf (<or=2+); Squamous Epithelial Cells - UA 0 SEEN /hpf (5-10)
[2025-07-12 20:43] LABS: Hematocrit 45.9 % (37-47); Hemoglobin 16.2 g/dL (12.0-15.0); Immature Granulocytes Count 0.030 X10^3/uL (0.0-0.0); Mean Corp Hgb Conc 35.3 g/dL (32-36); Mean Corpuscular Volume 92.2 fL (81-99); Mean Platelet Vol. 9.6 fl (6.2-12.0); NRBC Flagged by Analyzer 0 % (0-5); Platelet Count 201 K/mm3 (150-450); RBC Distribution Width CV 13.4 % (11.6-14.6); RBC Distribution Width SD 45.6 fl (35.1-43.9); Red Blood Count 4.98 M/mm3 (4.2-5.4); White Blood Count 9.2 K/mm3 (4.4-11.0)
--- NOTE | 2025-07-12 20:46 | CT_ITS ---
PROCEDURE: ABDOMEN/PELVIS WITHOUT CONT 07/12/2025 REASON FOR EXAM: KIDNEY STONE TECHNIQUE: Procedure Code: CTABDPEL Modality: CT Procedure: ABDOMEN/PELVIS WITHOUT CONT Noncontrast technique limits evaluation of the abdominal and pelvic viscera. Coronal and Sagittal reconstruction series were provided. One or more dose reduction techniques were used (e.g., Automated exposure control, adjustment of the mA and/or kV according to patient size, use of iterative reconstruction technique). FINDINGS: The lung bases are clear. The peripheral soft tissues unremarkable. Degenerative changes of the spine. Grade 1 anterolisthesis of L4 on L5. Moderate atherosclerosis. No lymphadenopathy. The liver, gallbladder, pancreas, spleen, and adrenals unremarkable. The kidneys are unremarkable. No hydronephrosis. Normal caliber large and small bowel without surrounding inflammatory changes. CT/Abdomen/Pelvis without Cont IMPRESSION: No nephrolithiasis or obstructive uropathy. Reading Location: [id number]
[2025-07-12 21:22] LABS: Anion Gap 13 (5-15); BUN 36 mg/dL (4-19); BUN/Creat Ratio 36.7 RATIO (10-20); Calcium,Total 9.8 mg/dL (7.6-11.0); Carbon Dioxide 22.7 mmol/L (21.0-32.0); Chloride 103 mmol/L (98-108); Estimated Creatinine Clearance 47.62 ml/min (50-250); Glucose 143 mg/dL (70-99); Potassium 4.2 mmol/L (3.3-5.1)
[2025-07-12 21:51] VITALS: BP 154/91; PULSE 70; RESP 18
[2025-07-12 22:07] LABS: Color, Urine Yellow (Yellow); Glucose, Dipstick Normal (Normal); Ketone-Dipstick Negative (Negative); Leukocyte Esterase-Dipstick Negative /ul (Negative); Nitrite-Dipstick Negative (Negative); Occult Blood-Urine 50 /ul (Negative); Protein-Dipstick 30 mg/dl (Negative); Specific Gravity, Urine 1.010 (1.002-1.030); Urine Bilirubin Dipstick Negative (Negative)
[2025-07-12 22:48] LABS: Red Blood Cells-Urine 0-5 SEEN /hpf (0-5)
[2025-07-12 23:27] VITALS: BP 167/93; PULSE 74; RESP 16; TEMP 36.6; O2SAT 99
== END 2025-07-12 23:28 | disposition home or self-care (01) ==
PROVIDERS: Emergency Provider Emergency Medicine; PCP Nurse Practitioner Family; Visit Provider Emergency Medicine
DX: R10.A2 Flank pain, left side (principal); R03.0 Elevated blood-pressure reading, without diagnosis of hypertension; I25.10 Atherosclerotic heart disease of native coronary artery without angina pectoris; E78.5 Hyperlipidemia, unspecified; I25.2 Old myocardial infarction; Z79.899 Other long term (current) drug therapy; Z90.49 Acquired absence of other specified parts of digestive tract
CPT/HCPCS: 74176; 80048; 81001; 85025; 96374; 99283; A4216

== ENCOUNTER → 2025-07-25 | Outpatient (CLI) | payer SELFPAY ==
[2025-07-25 18:00] LABS: Hematocrit 46.1 % (37-47); Hemoglobin 15.9 g/dL (12.0-15.0); Immature Granulocytes Count 0.020 X10^3/uL (0.0-0.0); Mean Corp Hgb Conc 34.5 g/dL (32-36); Mean Corpuscular Volume 93.1 fL (81-99); Mean Platelet Vol. 10.0 fl (6.2-12.0); NRBC Flagged by Analyzer 0 % (0-5); Platelet Count 216 K/mm3 (150-450); RBC Distribution Width CV 13.4 % (11.6-14.6); RBC Distribution Width SD 45.9 fl (35.1-43.9); Red Blood Count 4.95 M/mm3 (4.2-5.4); White Blood Count 6.9 K/mm3 (4.4-11.0)
[2025-07-25 18:14] LABS: AST(SGOT) 29 U/L (<=31); Alanine Aminotransfer ALT/SGPT 24 U/L (<=34); Albumin, Serum 4.2 g/dL (3.4-4.8); Alkaline Phosphatase 86 U/L (35-104); Anion Gap 12 (5-15); BUN 24 mg/dL (4-19); BUN/Creat Ratio 35.7 RATIO (10-20); Calcium,Total 9.6 mg/dL (7.6-11.0); Carbon Dioxide 25.4 mmol/L (21.0-32.0); Chloride 100 mmol/L (98-108); Cholesterol 260 mg/dL (<=200); Globulin 2.6 g/dL (2.2-4.2); Glucose 88 mg/dL (70-99); Low Density Lipoprotein Calc. 171 mg/dL; Potassium 3.7 mmol/L (3.3-5.1); Triglycerides 125 mg/dL; Very Low Density Lipoprotein 25 mg/dL (5-40); cholesterol:hdl ratio screen 3.90
== END | disposition home or self-care (01) ==
PROVIDERS: PCP Nurse Practitioner Family; Referring Provider Nurse Practitioner Family; Visit Provider Nurse Practitioner Family
DX: E78.5 Hyperlipidemia, unspecified (principal); I10 Essential (primary) hypertension
CPT/HCPCS: 36415; 80053; 80061; 85025

== ENCOUNTER → 2025-09-07 | Outpatient (CLI) | payer SELFPAY ==
--- NOTE | 2025-09-07 14:57 | VDLE_ITS ---
Reason For Study Reason For Study: Right leg swelling RIGHT LEFT GSV is normal. CFV is compressible, spontaneous, competent, and CFV is compressible, spontaneous, competent and demonstrates pulsatile venous flow. demonstrates pulsatile venous flow. FV is compressible, spontaneous, phasic, competent and demonstrates normal augmentation. POP V is compressible, spontaneous, phasic, competent and demonstrates normal augmentation. T/P Trunk is compressible. PTV is compressible. RT PerV is compressible. Procedure This is a venous duplex using B-mode, color flow and spectral Doppler. Exam performed in department. A preliminary report was called and/or faxed to Dr. Ron. VL/Venous Duplex US, Unilateral Interpretation Summary Deep veins of the right lower extremity are patent and compressible segmentally . There is no evidence of right lower extremity deep vein thrombosis. Valvular competence appears intact within the p roximal deep venous system on the right . The right great saphenous vein appears patent and compressible segmentally. The left common femoral vein is patent and compressible . Pulsatile flow is noted in the deep venous system bilaterally, w hich may be indicative of elevated central venous pressure (i.e. congestive heart failure, pulmonary hypertension, etc.). Clinical correlation is advised. Ordering Physician: Harshal Ron Referring Physician: Brooke Richardson Performed By: Giovanna Farfan RVT and Student
--- OUTSIDE RECORDS SUMMARY | 2025-09-07 17:52 | XMS RPT_ITS | CCD ---
Author Organization [facility] ion [facility] Care Team Providers Care Manager Track Name Role Phone AYLA RENEE Attending Unavailable AYLA RENEE Primary Care Unavailable AYLA RENEE Admitting Unavailable Dylan SIGN LETTERER-C, Brooke Primary Care Provider [phone] Dylan SIGN LETTERER-C, Brooke Attending Provider [phone] Dylan SIGN LETTERER-C, Brooke Referring Provider Asaf DIETZ, Harshal Moses Unavailable NONE, NONE Unavailable Unavailable Dylan MAYONNAISE MIXER, Brooke Unavailable Dylan, Brooke Primary Care Unavailable Dylan, Brooke Attending Unavailable Dylan, Brooke Referring Unavailable Dylan, Brooke Primary Care Unavailable Curt Quiñones Attending Unavailable Dylan, Brooke Referring Unavailable Dylan, Brooke Primary Care Unavailable Dylan, Brooke Attending Unavailable Dylan, Brooke Primary Care Unavailable Dylan, Brooke Attending Unavailable Dylan, Brooke Referring Unavailable Dylan, Brooke Primary Care Unavailable John Pérez Attending Unavailable Dylan, Brooke Referring Unavailable Dylan SIGN LETTERER-C, Brooke Primary Care Physician Dylan SIGN LETTERER-C, Brooke Attending Physician Curt Quiñones MD Attending Physician [phone] Curt Quiñones MD Emergency Department Physician Dr. John Pérez DO Attending Physician Allergies Allergy Classification Reported Allergen(s) Allergy Type Date of Onset Reaction(s) Facility (1 source) Contrast media Drug allergy (disorder) 07-06-20 25 difficulty breathing [facility] (1 source) Iodinated Contrast Media Drug allergy (disorder) 07-13-20 [facility] (2 sources) Triiodobenzoic Acids Propensity to adverse reactions 07-13-20 Difficulty breathing [facility] Medications Current Medications Medication Drug Class(es) Dates Sig (Normalized) Sig (Original) amLODIPine 5 mg oral tablet (4 sources) Dihydropyridine Calcium Channel Zoya Start: 07-12-2025 End: 07-13-2025 take 1 tablet by mouth once daily as needed Problems Problem Classification Problem Date Documented Date Episodic/Chronic Abdominal pain (4 sources) Flank pain; Translations: [Flank pain] 07-20-2025 Episodic Coronary atherosclerosis and other heart disease (9 sources) Atherosclerotic heart disease of inupiat coronary artery without angina pectoris; Translations: [History of myocardial infarction] Onset: 07-13-2025 07-11-2025 Chronic Comment on above: -Reported myocardial infarction in 2005, angiogram at [facility] without intervention or stent-Goal LDL at least below 70; blood pressure goal below 130/80-Outside records from MD in 2005 not available today, will request-EKG reviewed today in clinic-normal sinus rhythm, no Q waves or signs of ischemia or previous infarction Disorders of lipid metabolism (5 sources) Hyperlipidemia, unspecified; Translations: [Hyperlipidemia] Onset: 07-25-2025 07-13-2025 Chronic Comment on above: - Managed by PCP and outside laboratory; endorses LDL elevated in past Essential hypertension (6 sources) Essential (primary) hypertension; Translations: [Hypertensive disorder] Onset: 07-13-2025 07-13-2025 Chronic Comment on above: - Elevated in clinic today to 152/86; home blood pressure average greater than 130/80- Patient wishes to remain off pharmacologic therapy- Educated patient if she changes her mind to start amlodipine 5 mg (previously prescribed by ED) in the interim- Continue home blood pressure monitoring and follow-up with PCP Joint disorders and dislocations; trauma-related (2 sources) Tear of meniscus of knee; Translations: [Other meniscus derangements, unspecified meniscus, right knee] Onset: 07-06-2025 07-06-2025 Chronic Osteoarthritis (6 sources) Unilateral primary osteoarthritis, right knee; Translations: [Osteoarthrosis, localized, primary, lower leg] Onset: 07-06-2025 07-06-2025 Chronic Other circulatory disease (1 source) Elevated blood-pressure reading, without diagnosis of hypertension; Translations: [Elevated blood-pressure reading, without diagnosis of hypertension] Onset: 07-13-2025 Episodic Other circulatory disease (2 sources) Elevated blood-pressure reading without diagnosis of hypertension; Translations: [Elevated blood-pressure reading, without diagnosis of hypertension] 07-20-2025 Episodic Other non-traumatic joint disorders (1 source) Pain in right knee; Translations: [Pain in right knee] Onset: 06-07-2025 Episodic Unclassified (1 source) Flank pain, left side; Translations: [Flank pain, left side] Onset: 07-18-2025 Results Test Name Value Interpretation Reference Range Facility CBC W/Diff, Automatedon 06-29 Absolute Lymph 2.16 X10 3/uL Normal 0.83-4.51 [facility] Comment on above: Performed By: #### L 500.4100, L500.4050, L100.0100 #### [facility] [address] [place], [address] Absolute Neut 4.1 X10 3/uL Normal 2.0-7.7 [facility] Comment on above: Performed By: #### L 500.4100, L500.4050, L100.0100 #### [facility] [address] [place], [address] Basophils/100 WBC (Bld) 0.3 % Normal 0-1 [facility] Comment on above: Performed By: #### L 500.4100, L500.4050, L100.0100 #### [facility] [address] [place], [address] Eosinophils/100 WBC (Bld) 1.2 % Normal 0-5 [facility] Comment on above: Performed By: #### L 500.4100, L500.4050, L100.0100 #### [facility] [address] [place], [address] Erythrocyte distribution width (RBC) [Ratio] 13.4 % Normal 11.6-14.6 [facility] Comment on above: Performed By: #### L 500.4100, L500.4050, L100.0100 #### [facility] [address] [place], [address] Hematocrit (Bld) [Volume fraction] 46.1 % Normal 37-47 [facility] Comment on above: Performed By: #### L 500.4100, L500.4050, L100.0100 #### [facility] [address] [place], [address] Hemoglobin (Bld) [Mass/Vol] 15.9 g/dL High 12.0-15.0 [facility] Comment on above: Performed By: #### L 500.4100, L500.4050, L100.0100 #### [facility] [address] [place], [address] IG% 0.300 Normal 0.0-0.9 [facility] Comment on above: Result Comment: IG% - Immature Granulocytes (promyelocytes, myelocytes and metamyelocytes) > 1% indicates that a LEFT SHIFT is Present. Performed By: #### L 500.4100, L500.4050, L100.0100 #### [facility] [address] [place], [address] Lymphocytes/100 WBC (Bld) 31.2 % Normal 19-41 [facility] Comment on above: Performed By: #### L 500.4100, L500.4050, L100.0100 #### [facility] [address] [place], [address] MCH (RBC) [Entitic mass] 32.1 pg High 27.0-32.0 [facility] Comment on above: Performed By: #### L 500.4100, L500.4050, L100.0100 #### [facility] [address] [place], [address] MCHC (RBC) [Mass/Vol] 34.5 g/dL Normal 32-36 [facility] Comment on above: Performed By: #### L 500.4100, L500.4050, L100.0100 #### [facility] [address] [place], [address] MCV (RBC) [Entitic vol] 93.1 fL Normal 81-99 [facility] Comment on above: Performed By: #### L 500.4100, L500.4050, L100.0100 #### [facility] [address] [place], [address] Monocytes/100 WBC (Bld) 7.4 % Normal 0-10 [facility] Comment on above: Performed By: #### L 500.4100, L500.4050, L100.0100 #### [facility] [address] [place], [address] Neutrophils/100 WBC (Bld) 59.6 % Normal 47-70 [facility] Comment on above: Performed By: #### L 500.4100, L500.4050, L100.0100 #### [facility] [address] [place], [address] Nucleated RBC (Bld) [#/Vol] 0 10*3/uL Normal 0-5 [facility] Comment on above: Performed By: #### L 500.4100, L500.4050, L100.0100 #### [facility] [address] [place], [address] Platelet mean volume (Bld) [Entitic vol] 10.0 fL Normal 6.2-12.0 [facility] Comment on above: Performed By: #### L 500.4100, L500.4050, L100.0100 #### [facility] [address] [place], [address] Platelets (Bld) [#/Vol] 216 10*3/uL Normal 150-450 [facility] Comment on above: Performed By: #### L 500.4100, L500.4050, L100.0100 #### [facility] [address] [place], [address] RBC (Bld) [#/Vol] 4.95 10*6/uL Normal 4.2-5.4 [facility] Comment on above: Performed By: #### L 500.4100, L500.4050, L100.0100 #### [facility] [address] [place], [address] RDW SD 45.9 fl High 35.1-43.9 [facility] Comment on above: Performed By: #### L 500.4100, L500.4050, L100.0100 #### [facility] [address] [place], [address] WBC (Bld) [#/Vol] 6.9 10*3/uL Normal 4.4-11.0 [facility] Comment on above: Performed By: #### L 500.4100, L500.4050, L100.0100 #### [facility] [address] [place], [address] Comprehensive Metabolic [facility] 07-25-2025 Albumin [Mass/Vol] 4.2 g/dL Normal 3.4-4.8 [facility] Comment on above: Performed By: #### L 500.4100, L500.4050, L100.0100 #### [facility] [address] [place], [address] Albumin/Globulin [Mass ratio] 1.6 {ratio} Normal 0.9-2.4 [facility] Comment on above: Performed By: #### L 500.4100, L500.4050, L100.0100 #### [facility] [address] [place], [address] ALK PHOS 86 U/L Normal 35-104 [facility] Comment on above: Performed By: #### L 500.4100, L500.4050, L100.0100 #### [facility] [address] [place], [address] ALT [Catalytic activity/Vol] 24 U/L Normal <=34 [facility] Comment on above: Performed By: #### L 500.4100, L500.4050, L100.0100 #### [facility] [address] [place], [address] AST [Catalytic activity/Vol] 29 U/L Normal <=31 [facility] Comment on above: Performed By: #### L 500.4100, L500.4050, L100.0100 #### [facility] [address] [place], [address] Bilirubin [Mass/Vol] 0.56 mg/dL Normal 0.00-1.30 [facility] Comment on above: Performed By: #### L 500.4100, L500.4050, L100.0100 #### [facility] [address] [place], [address] BUN/CRE 35.7 RATIO High 10-20 [facility] Comment on above: Performed By: #### L 500.4100, L500.4050, L100.0100 #### [facility] [address] [place], [address] Calcium [Mass/Vol] 9.6 mg/dL Normal 7.6-11.0 [facility] Comment on above: Performed By: #### L 500.4100, L500.4050, L100.0100 #### [facility] [address] [place], [address] Chloride [Moles/Vol] 100 mmol/L Normal 98-108 [facility] Comment on above: Performed By: #### L 500.4100, L500.4050, L100.0100 #### [facility] [address] [place], [address] CO2 [Moles/Vol] 25.4 mmol/L Normal 21.0-32.0 [facility] Comment on above: Performed By: #### L 500.4100, L500.4050, L100.0100 #### [facility] [address] [place], [address] Creatinine [Mass/Vol] 0.66 mg/dL Low 0.70-1.20 [facility] Comment on above: Performed By: #### L 500.4100, L500.4050, L100.0100 #### [facility] [address] [place], [address] GAP 12 Normal 5-15 [facility] Comment on above: Performed By: #### L 500.4100, L500.4050, L100.0100 #### [facility] [address] [place], [address] GFR/1.73 sq M.predicted among non-blacks MDRD (S/P/Bld) [Vol rate/Area] 95 mL/min/{1.73_m2} Normal >60 [facility] Comment on above: Result Comment: mL/m in/1.73m2 CKD-EPI Creatinine Equation (2020) Performed By: #### L 500.4100, L500.4050, L100.0100 #### [facility] [address] [place], [address] Globulin (S) [Mass/Vol] 2.6 g/dL Normal 2.2-4.2 [facility] Comment on above: Performed By: #### L 500.4100, L500.4050, L100.0100 #### [facility] [address] [place], [address] Glucose [Mass/Vol] 88 mg/dL Normal 70-99 [facility] Comment on above: Performed By: #### L 500.4100, L500.4050, L100.0100 #### [facility] [address] [place], [address] Potassium [Moles/Vol] 3.7 mmol/L Normal 3.3-5.1 [facility] Comment on above: Performed By: #### L 500.4100, L500.4050, L100.0100 #### [facility] [address] [place], [address] Sodium [Moles/Vol] 137 mmol/L Normal 133-145 [facility] Comment on above: Performed By: #### L 500.4100, L500.4050, L100.0100 #### [facility] [address] [place], [address] T PROT 6.9 g/dL Normal 5.9-8.4 [facility] Comment on above: Performed By: #### L 500.4100, L500.4050, L100.0100 #### [facility] [address] [place], [address] Urea nitrogen [Mass/Vol] 24 mg/dL High 4-19 [facility] Comment on above: Performed By: #### L 500.4100, L500.4050, L100.0100 #### [facility] [address] [place], [address] Lipid Profileon 07-25-2025 CHOL:HDL 3.90 Normal [facility] Comment on above: Performed By: #### L 100.0100, L500.2500 #### [facility] [address] [place], [address] Cholesterol [Mass/Vol] 260 mg/dL High <=200 [facility] Comment on above: Result Comment: Chol esterol level, Desirable <200 mg/dL Borderline high cholesterol 200-239 mg/dL High cholesterol >=240 mg/dL Recommendations of the NCEP Adult Treatment Panel for the following risk-cutoff thresholds for the [place] population. Performed By: #### L 100.0100, L500.2500 #### [facility] [address] [place], [address] Cholesterol in HDL [Mass/Vol] 67 mg/dL Normal [facility] Comment on above: Result Comment: Zara onal Cholesterol Education Program (NCEP) guidelines: <40 mg/dL: Low HDL-cholesterol (major risk factor for CHD) >= 60 mg/dL: High HDL-cholesterol (negative risk factor for CHD) HDL-cholesterol is affected by a number of factors, e.g. smoking, exercise, hormones, sex and age. Performed By: #### L 100.0100, L500.2500 #### [facility] [address] [place], [address] Cholesterol in LDL [Mass/Vol] 171 mg/dL Normal [facility] Comment on above: Result Comment: Bord mdlfjp=449-167 mg/dL Higher Heto=866 mg/dL or greater Ibanez Equation 2020 for LDL-C Performed By: #### L 100.0100, L500.2500 #### [facility] [address] [place], [address] Cholesterol in VLDL [Mass/Vol] 25 mg/dL Normal 5-40 [facility] Comment on above: Performed By: #### L 100.0100, L500.2500 #### [facility] [address] [place], [address] Triglyceride [Mass/Vol] 125 mg/dL Normal [facility] Comment on above: Result Comment: The drugs N-Acetylcysteine and Metamizole may falsely depress this assay. Normal range: <150 mg/dL Borderline High: 150-199 mg/dL High: 200-499 mg/dL Very High: >500 mg/dL Performed By: #### L 100.0100, L500.2500 #### [facility] [address] [place], [address] Cardiology Visit Reporton Cardiology Visit Report [facility] [address] [place] [address] OFFICE VISIT Date of Service: 07/13/25 MR#: [id number] Acct: [id number] Name: EDUAR FREDERICK Rep #: [id number] : 1955 Provider: Dr. John cha DO Age/Sex: 69/F Location: [facility] Status: Signed HPI HPI History of Present Illness Details: Mr. Frederick is a 69-year-old female with significant past medical history of reported MD in 2005, hyperlipidemia, and chronic musculoskeletal pain in her right hip and knee. She presented to the ED yesterday for flank pain. She was noted to be hypertensive and started on amlodipine [address] imaging was negative and patient was discharged. Today, she presents to the office for preoperative cardiac evaluation for right hip replacement at [facility]. It has been noted from her primary care physician that she has medication intolerance, but per her last visit notes her blood pressure was relatively well-controlled 130/80. Patient is seen today in clinic accompanied by her . Patient states that she has chronic right leg pain stemming from a traumatic accident years ago. She has no acute complaints and otherwise feels well. She has no activity limiting or exertional symptoms. She is regularly able to climb multiple flights of stairs without difficulty. She feels much improved from her ED visit yesterday, is currently pain- free and believes she passed a kidney stone. Regarding her history of MD in 2005, patient admits that she underwent coronary angiography at [facility]. She endorses there was a 70% blockage in a distal vessel that was not amenable to stenting. She regularly followed with an outside gearman regularly for a few years of this but has not seen one in many years. She does endorse she likely had an echocardiogram during her follow-up. She is not taking any prescription medications, follows with an outside clinic for lipid labs, and has been off aspirin for many years. She has not started the amlodipine that she was prescribed yesterday. During her visit today, she is hesitant to start any prescription medications and prefers to use herbal supplements as she is feeling well without any complaints. She cites medication side effects with any previous medications. Her blood pressure at home ranges from roughly 120/70 to 150/90. 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 Required: No Accompanied by: Is patient in pain?: No Allergies Iodinated Contrast Media (IVP dye) Adverse Reaction (Unknown, Verified 07/13/25 08:22) Difficulty breathing Medications ???Medication ???Instructions ???Recorded ???Confirmed ???Type amlodipine 5 mg tablet 5 mg PO DAILY PRN 07/13/25 Histor y Have you fallen in the past year?: No PFSH Medical History Atherosclerotic heart disease of inupiat coronary artery without angina pectoris Hyperlipidemia History of MD (myocardial infarction) ( 2005) Surgical History History of esophagogastroduodenoscopy (EGD) Scar tissue History of appendectomy Family History (Updated 07/13/25 @ 08:17 by Claritza Brennan) Father Myocardial infarction, Onset Age: 66 Mother Hypertension Sister Diabetes CVA (cerebral vascular accident) Sister Prediabetes Brother CAD (coronary artery disease) Stents Social History Smoking Status: Never smoker alcohol intake: never substance use type: does not use caffeine: Yes Type: coffee ROS ROS Narrative 14 point review of systems reviewed, and negative except as listed above in HPI Cardiology Exam Exam Narrative ???Gen: A Ox3, NAD ???HEENT: Normocephalic/Atraumatic, MMM ???Neck: Supple, no JVD ???Pulm: Normal work of breathing, CTA bilaterally with no wheezes or crackles ???CV: RRR, normal S1/S2, no m/r/g ???Abd: Soft, NT/ND ???Extr: Warm to touch, no LE edema, distal pulses intact and symmetric in upper and lower extremities ???Neuro: No gross focal deficits, normal speech ???Psych: Normal affect, answers questions appropriately Assessment and Plan Assessment and Plan (1) Chronic coronary artery disease: Status: Chronic Comment: -Reported myocardial infarction in 2005, angiogram at [facility] without intervention or stent -Goal LDL at least below 70; blood pressure goal below 130/80 -Outside records from MD in 2005 not available today, will request -EKG reviewed today in clinic-normal s (more content not included)... Normal [facility] Abdomen/Pelvis without Conto n 07-12-2025 Abdomen/Pelvis without Cont [facility] Imaging Services [address] [place] [address] [id number] Abdomen/Pelvis without Cont MR#: [id number] Acct: [id number] Name: EDUAR FREDERICK Rep #: [id number] : 1955 F 69 From: Anil Rhodes MD PCP: FREDIS Dong Status: REG ER Study: Abdomen/Pelvis without Cont Date of Exam: 06/28 02/19 Exam# [id number] Ordering Dr: Curt Quiñones MD PROCEDURE: ABDOMEN/PELVIS WITHOUT CONT 07/12/2025 REASON FOR EXAM: KIDNEY STONE TECHNIQUE: Procedure Code: CTABDPEL Modality: CT Procedure: ABDOMEN/PELVIS WITHOUT CONT Noncontrast technique limits evaluation of the abdominal and pelvic viscera. Coronal and Sagittal reconstruction series were provided. One or more dose reduction techniques were used (e.g., Automated exposure control, adjustment of the mA and/or kV according to patient size, use of iterative reconstruction technique). FINDINGS: The lung bases are clear. The peripheral soft tissues unremarkable. Degenerative changes of the spine. Grade 1 anterolisthesis of L4 on L5. Moderate atherosclerosis. No lymphadenopathy. The liver, gallbladder, pancreas, spleen, and adrenals unremarkable. The kidneys are unremarkable. No hydronephrosis. Normal caliber large and small bowel without surrounding inflammatory changes. CT/Abdomen/Pelvis without Cont IMPRESSION: No nephrolithiasis or obstructive uropathy. Reading Location: [address] CC: FREDIS Richardson; Dr. Curt Quiñones MD [employer]: Signed Normal [facility] Absolute lymphocyte countOrd ered By: Curt Quiñones on 07-12-2025 Lymphocytes Auto (Unsp spec) [#/Vol] 0.73 10*3/uL Low 0.83-4.51 [facility] Absolute neutrophil countOrd ered By: Curt Quiñones on 07-12-2025 Neutrophils (Bld) [#/Vol] 8.0 10*3/uL High 2.0-7.7 [facility] Anion gap in Serum or Plasma Ordered By: Curt Quiñones on 07-12-2025 Anion gap [Moles/Vol] 13 mmol/L 02-09 [facility] Automated lymphocyte count a s percentage of total leukocytesOrdered By: Curt Quiñones on 07-12-2025 Lymphocytes/100 WBC Auto (Unsp spec) 7.9 % Low 19-41 [facility] BUN/creatinine ratioOrdered By: Curt Quiñones on 07-12-2025 Urea nitrogen/Creatinine [Mass ratio] 36.7 mg/mg High 07-17 [facility] Basic Metabolic Profile (BMP )on 07-12-2025 BUN/CRE 36.7 RATIO High 07-17 [facility] Comment on above: Performed By: #### L 100.0100, L500.2500 #### [facility] [address] [place], [address] Calcium [Mass/Vol] 9.8 mg/dL Normal 7.6-11.0 [facility] Comment on above: Performed By: #### L 100.0100, L500.2500 #### [facility] [address] [place], [address] Chloride [Moles/Vol] 103 mmol/L Normal 98-108 [facility] Comment on above: Performed By: #### L 100.0100, L500.2500 #### [facility] [address] [place], [address] CO2 [Moles/Vol] 22.7 mmol/L Normal 21.0-32.0 [facility] Comment on above: Performed By: #### L 100.0100, L500.2500 #### [facility] [address] [place], [address] Creatinine [Mass/Vol] 0.98 mg/dL Normal 0.70-1.20 [facility] Comment on above: Performed By: #### L 100.0100, L500.2500 #### [facility] [address] [place], [address] ECRCL 47.62 ml/min Low 50-250 [facility] Comment on above: Performed By: #### L 100.0100, L500.2500 #### [facility] [address] [place], [address] GAP 13 Normal 5-15 [facility] Comment on above: Performed By: #### L 100.0100, L500.2500 #### [facility] [address] [place], [address] GFR/1.73 sq M.predicted among non-blacks MDRD (S/P/Bld) [Vol rate/Area] 63 mL/min/{1.73_m2} Normal >60 [facility] Comment on above: Result Comment: mL/m in/1.73m2 CKD-EPI Creatinine Equation (2020) Performed By: #### L 100.0100, L500.2500 #### [facility] [address] [place], [address] Glucose [Mass/Vol] 143 mg/dL High 70-99 [facility] Comment on above: Performed By: #### L 100.0100, L500.2500 #### [facility] [address] [place], [address] Potassium [Moles/Vol] 4.2 mmol/L Normal 3.3-5.1 [facility] Comment on above: Result Comment: Hemo lysis present, Results??could be affected. ?? Performed By: #### L 100.0100, L500.2500 #### [facility] [address] [place], [address] Sodium [Moles/Vol] 139 mmol/L Normal 133-145 [facility] Comment on above: Performed By: #### L 100.0100, L500.2500 #### [facility] [address] [place], [address] Urea nitrogen [Mass/Vol] 36 mg/dL High 4-19 [facility] Comment on above: Performed By: #### L 100.0100, L500.2500 #### [facility] [address] [place], [address] Basophil percentageOrdered B y: Curt Quiñones on 07-12-2025 Basophils/100 WBC (Bld) 0.2 % 0-1 [facility] Bilirubin Test strip Ql (U)O rdered By: Curt Quiñones on 07-12-2025 Bilirubin Ql (U) Negative Negative [facility] CBC W/Diff, Automatedon 06-28 Absolute Lymph 0.73 X10 3/uL Low 0.83-4.51 [facility] Comment on above: Performed By: #### L 100.0100, L500.2500 #### [facility] [address] [place], [address] Absolute Neut 8.0 X10 3/uL High 2.0-7.7 [facility] Comment on above: Performed By: #### L 100.0100, L500.2500 #### [facility] [address] [place], [address] Basophils/100 WBC (Bld) 0.2 % Normal 0-1 [facility] Comment on above: Performed By: #### L 100.0100, L500.2500 #### [facility] [address] [place], [address] Eosinophils/100 WBC (Bld) 0.1 % Normal 0-5 [facility] Comment on above: Performed By: #### L 100.0100, L500.2500 #### [facility] [address] [place], [address] Erythrocyte distribution width (RBC) [Ratio] 13.4 % Normal 11.6-14.6 [facility] Comment on above: Performed By: #### L 100.0100, L500.2500 #### [facility] [address] [place], [address] Hematocrit (Bld) [Volume fraction] 45.9 % Normal 37-47 [facility] Comment on above: Performed By: #### L 100.0100, L500.2500 #### [facility] [address] [place], [address] Hemoglobin (Bld) [Mass/Vol] 16.2 g/dL High 12.0-15.0 [facility] Comment on above: Performed By: #### L 100.0100, L500.2500 #### [facility] [address] [place], [address] IG% 0.300 Normal 0.0-0.9 [facility] Comment on above: Result Comment: IG% - Immature Granulocytes (promyelocytes, myelocytes and metamyelocytes) > 1% indicates that a LEFT SHIFT is Present. Performed By: #### L 100.0100, L500.2500 #### [facility] [address] [place], [address] Lymphocytes/100 WBC (Bld) 7.9 % Low 19-41 [facility] Comment on above: Performed By: #### L 100.0100, L500.2500 #### [facility] [address] [place], [address] MCH (RBC) [Entitic mass] 32.5 pg High 27.0-32.0 [facility] Comment on above: Performed By: #### L 100.0100, L500.2500 #### [facility] [address] [place], [address] MCHC (RBC) [Mass/Vol] 35.3 g/dL Normal 32-36 [facility] Comment on above: Performed By: #### L 100.0100, L500.2500 #### [facility] [address] [place], [address] MCV (RBC) [Entitic vol] 92.2 fL Normal 81-99 [facility] Comment on above: Performed By: #### L 100.0100, L500.2500 #### [facility] [address] [place], [address] Monocytes/100 WBC (Bld) 4.1 % Normal 0-10 [facility] Comment on above: Performed By: #### L 100.0100, L500.2500 #### [facility] [address] [place], [address] Neutrophils/100 WBC (Bld) 87.4 % High 47-70 [facility] Comment on above: Performed By: #### L 100.0100, L500.2500 #### [facility] [address] [place], [address] Nucleated RBC (Bld) [#/Vol] 0 10*3/uL Normal 0-5 [facility] Comment on above: Performed By: #### L 100.0100, L500.2500 #### [facility] [address] [place], [address] Platelet mean volume (Bld) [Entitic vol] 9.6 fL Normal 6.2-12.0 [facility] Comment on above: Performed By: #### L 100.0100, L500.2500 #### [facility] [address] [place], [address] Platelets (Bld) [#/Vol] 201 10*3/uL Normal 150-450 [facility] Comment on above: Performed By: #### L 100.0100, L500.2500 #### [facility] [address] [place], [address] RBC (Bld) [#/Vol] 4.98 10*6/uL Normal 4.2-5.4 [facility] Comment on above: Performed By: #### L 100.0100, L500.2500 #### [facility] [address] [place], [address] RDW SD 45.6 fl High 35.1-43.9 [facility] Comment on above: Performed By: #### L 100.0100, L500.2500 #### [facility] [address] [place], [address] WBC (Bld) [#/Vol] 9.2 10*3/uL Normal 4.4-11.0 [facility] Comment on above: Performed By: #### L 100.0100, L500.2500 #### [facility] [address] [place], [address] Carbon dioxide, total [Moles /volume] in Central venous bloodOrdered By: Curt Quiñones on 07-12-2025 CO2 [Moles/Vol] 22.7 mmol/L 21.0-32.0 [facility] Chloride assayOrdered By: Eleazar Quiñones on 07-12-2025 Chloride [Moles/Vol] 103 mmol/L 98-108 [facility] Emergency Department Summary on 07-12-2025 Emergency Department Summary [facility] Department [address] [place] [address] Emergency Department Summary 07/12/25 MR#: [id number] Acct: [id number] Name: EDUAR FREDERICK Rep #: [id number] : 1955 69 From: Curt Quiñones MD PCP: SHYLA DongC Status:REG ER Location: ED HPI History of Present Illness Chief Complaint: Abd Pain Narrative Narrative: 69-year-old female who denies significant past medical history presents with suprapubic to left- sided flank pain that began a few hours ago. Its improved since then. She states that it was more of a sharp stabbing pain that she was having intravaginally and radiating upwards, perhaps more to the left. She denies any fevers or chills, no dysuria or hematuria, no exacerbating or alleviating factors. She did note that she had an episode like this within the last week that only lasted about an hour. She was nauseated but did not vomit. No problems with bowel movements, no diarrhea. PFSH PFS Medical History Atherosclerotic heart disease of inupiat coronary artery without angina pectoris Hyperlipidemia History of MD (myocardial infarction) ( 2005) Home Medications ???Medication ???Instructions ???Recorded ???Last Taken ???Type amlodipine 5 mg tablet 5 mg PO DAILY #14 tabs 07/12/25 Un known Rx Allergy/AdvReac Type Severity Reaction Status Date / Time Iodinated Contrast Media AdvReac Unknown Difficulty Verified 07/12/25 19:54 (IVP dye) breathing Surgical History History of esophagogastroduodenoscopy (EGD) Scar tissue History of appendectomy Social History Smoking Status: Never smoker substance use type: does not use ROS ROS ED ROS Narrative Review of systems positive for suprapubic to left sided abdominal pain/flank pain. No dysuria or hematuria. No fevers or chills. Positive nausea but no vomiting. EXAM Physical Exam Narrative Exam Narrative: Afebrile. Vital signs noted. Nontoxic-appearing. Cardiovascular exam regular rate and rhythm. Lungs are clear to auscultation bilaterally. Abdomen is soft with minimal tenderness to palpation in the suprapubic area, no rebound or guarding. Positive bowel sounds. No CVA tenderness to percussion bilaterally. Const Vital Signs: 07/12/25 19:51 07/12/25 21:51 Temperature 97.8 F Temperature Source Temporal Pulse Rate 82 70 Respiratory Rate 16 18 Blood Pressure 193/110 H 154/91 H Blood Pressure Mean 137 112 Pulse Ox 99 Oxygen Delivery Method Room Air MDM MDM MDM Narrative Medical decision making narrative: Differential diagnosis includes but not limited to ureterolithiasis versus cystitis versus pyelonephritis versus diverticulitis. History and physical does not support diverticulitis patient not having problems with bowel movements. I reviewed her laboratory work and she has a normal white count of 9.2 with hemoglobin 16.2, hematocrit 45.9, platelet count 201. BMP is remarkable for glucose of 143 with BUN of 36 and creatinine 0.98. Sodium and potassium normal. Urinalysis is negative for ketones, negative for infection with 0-5 WBCs and 0-5 RBCs. 0 bacteria. I do not feel antibiotics are indicated. I reviewed the radiology report of the CT of the abdomen and pelvis without contrast, there is no obstructive uropathy, no hydronephrosis, no acute process. After Toradol, her pain has improved. I am unsure to the cause of her suprapubic to left flank pain. However, I do feel she can be discharged safely home with follow-up. She had fluctuating blood pressure, initially 193/110, then down to 154/91. She is asymptomatic with this without chest pain or shortness of breath. She was told to keep a log of her blood pressures and she states that she is had readings of 147 with elevated diastolic in the past. Although she is asymptomatic, with her fluctuating blood pressure as high as 188 systolic, she was given an amlodipine 5 mg tablet here and prescription written to take daily for the next 2 weeks. She should follow-up with her primary care provider within the next 1 to 2 weeks. Return instructions to the emergency department were reviewed. Disposition is discharged home in stable condition. History Record Review Discussion w/independent historian: Patient Additional record(s) reviewed:: Prior ED visit (No prior ED visits) Lab Data Attestation: I reviewed the patient's lab results. Labs: Laboratory Results - last 24 hr 07/12/25 20:30 WBC 9.2 RBC 4.98 Hgb 16.2 H Hct 45.9 MCV 92.2 MCH 32.5 H MCHC 35.3 RDW Std Deviation 45.6 H RDW Coeff of Adolfo 13.4 Plt Count 201 MPV 9.6 Immature Gran % (Auto) 0.300 Neut % (Auto) 87.4 H L (more content not included)... Normal [facility] Eosinophil percentageOrdered By: Curt Quiñones on 07-12-2025 Eosinophils/100 WBC (Bld) 0.1 % 0-5 [facility] Erythrocyte distribution wid th ratioOrdered By: Curt Quiñones on 07-12-2025 Erythrocyte distribution width (RBC) [Ratio] 13.4 % 11.6-14.6 [facility] Erythrocyte distribution wid th standard deviationOrdered By: Curt Quiñones on 07-12-2025 Erythrocyte distribution width (RBC) [Ratio] 45.6 fl High 35.1-43.9 [facility] Glomerular filtration rate ( GFR) estimation/1.73 sq m using serum, plasma, or whole bOrdered By: Curt Quiñones on 07-12-2025 GFR/1.73 sq M.predicted among non-blacks MDRD (S/P/Bld) [Vol rate/Area] 63 mL/min/{1.73_m2} >60 [facility] Comment on above: mL/min/1.73m2 CKD-EP I Creatinine Equation (2020) Hematocrit Auto (Bld) [Volum e fraction]Ordered By: Curt Quiñones on 07-12-2025 Hematocrit (Bld) [Volume fraction] 45.9 % 37-47 [facility] Hemoglobin measurementOrdere d By: Curt Quiñones on 07-12-2025 Hemoglobin (Bld) [Mass/Vol] 16.2 g/dL High 12.0-15.0 [facility] Immature granulocytes/100 WB C Auto (Bld)Ordered By: Curt Quiñones on 07-12-2025 Immature granulocytes/100 WBC (Bld) 0.300 % 0.0-0.9 [facility] Comment on above: IG% - Immature Granu locytes (promyelocytes, myelocytes and metamyelocytes) > 1% indicates that a LEFT SHIFT is Present. Ketones Test strip Ql (U)Ord ered By: Curt Quiñones on 07-12-2025 Ketones Ql (U) Negative Negative [facility] MCV (mean corpuscular volume ) determinationOrdered By: Curt Quiñones on 07-12-2025 MCV (RBC) [Entitic vol] 92.2 fL 81-99 [facility] Mean corpuscular hemoglobin (MCH) determinationOrdered By: Curt Quiñones on 07-12-2025 MCH (RBC) [Entitic mass] 32.5 pg High 27.0-32.0 [facility] Mean corpuscular hemoglobin concentration (MCHC) determinationOrdered By: Curt Quiñones on 07-12-2025 MCHC (RBC) [Mass/Vol] 35.3 g/dL 32-36 [facility] Mean platelet volume determi nationOrdered By: Curt Quiñones on 07-12-2025 Platelet mean volume (Bld) [Entitic vol] 9.6 fL 6.2-12.0 [facility] Microscopic analysis of urin e for red blood cells (RBC)Ordered By: Curt Quiñones on 07-12-2025 Microscopic analysis of urine for red blood cells (RBC) 0-5 SEEN /hpf 0-5 [facility] Monocyte percentageOrdered B y: Curt Quiñones on 07-12-2025 Monocytes/100 WBC (Bld) 4.1 % 0-10 [facility] Mucus LM Ql (Urine sed)Order ed By: Curt Quiñones on 07-12-2025 Mucus Ql (Urine sed) 0 SEEN /hpf [facility] Neutrophil percentageOrdered By: Curt Quiñones on 07-12-2025 Neutrophils/100 WBC (Bld) 87.4 % High 47-70 [facility] Nitrite Test strip Ql (U)Ord ered By: Curt Quiñones on 07-12-2025 Nitrite Ql (U) Negative Negative [facility] Nucleated red blood cell per centageOrdered By: Curt Quiñones on 07-12-2025 Nucleated RBC/100 WBC (Bld) [Ratio] 0 % 0- [facility] Platelet countOrdered By: Eleazar Quiñones on 07-12-2025 Platelets (Bld) [#/Vol] 201 10*3/uL 150-450 [facility] Potassium measurement (mass/ volume)Ordered By: Curt Quiñones on 07-12-2025 Potassium (Unsp spec) [Mass/Vol] 4.2 mmol/L 3.3-5.1 [facility] Comment on above: Hemolysis present, R esults could be affected. Protein Test strip Ql (U)Ord ered By: Curt Quiñones on 07-12-2025 Protein Ql (U) 30 mg/dl High Negative [facility] RBC Auto (Bld) [#/Vol]Ordere d By: Curt Quiñones on 07-12-2025 RBC (Bld) [#/Vol] 4.98 10*6/uL 4.2-5.4 [facility] Serum creatinine measurement (mass/volume)Ordered By: Curt Quiñones on 07-12-2025 Creatinine [Mass/Vol] 0.98 mg/dL 0.70-1.20 [facility] Serum glucose measurement (m ass/volume)Ordered By: Curt Quiñones on 07-12-2025 Glucose [Mass/Vol] 143 mg/dL High 70-99 [facility] Serum or plasma calcium lela urement (mass/volume)Ordered By: Curt Quiñones on 07-12-2025 Calcium [Mass/Vol] 9.8 mg/dL 7.6-11.0 [facility] Serum or plasma urea nitroge n measurement (mass/volume)Ordered By: Curt Quiñones on 07-12-2025 Urea nitrogen [Mass/Vol] 36 mg/dL High 4-19 [facility] Sodium levelOrdered By: Curt Quiñones on 07-12-2025 Sodium [Moles/Vol] 139 mmol/L 133-145 [facility] Squamous epithelial cells de tection in urine sediment by light microscopyOrdered By: Curt Quiñones on 07-12-2025 Epithelial cells.squamous LM Ql (Urine sed) 0 SEEN /hpf 5-10 [facility] Urinalysis, Completeon 07-12 RBC 0-5 SEEN Normal 0-5 [facility] Comment on above: Order Comment: CLEAN CATCH Performed By: #### L 400.0001 #### [facility] [address] [place], [address] WBC 0-5 SEEN Normal 0-5 [facility] Comment on above: Order Comment: CLEAN CATCH Performed By: #### L 400.0001 #### [facility] [address] [place], [address] BACTERIA 0 SEEN Normal None Seen [facility] Comment on above: Order Comment: CLEAN CATCH Performed By: #### L 400.0001 #### [facility] [address] [place], [address] EPI,SQUAMOUS 0 SEEN Normal 5-10 [facility] Comment on above: Order Comment: CLEAN CATCH Performed By: #### L 400.0001 #### [facility] [address] [place], [address] Mucus Ql (Urine sed) 0 SEEN Normal [facility] Comment on above: Order Comment: CLEAN CATCH Performed By: #### L 400.0001 #### [facility] [address] [place], [place], [id number] Urine clarityOrdered By: Silke Quiñones on 07-12-2025 Clarity (U) Clear Clear [facility] Urine color determinationOrd ered By: Curt Quiñones on 07-12-2025 Color (U) Yellow Yellow [facility] Urine glucose detectionOrder ed By: Curt Quiñones on 07-12-2025 Glucose Ql (U) Normal mg/dl Normal [facility] Urine leukocyte esterase det ection by dipstickOrdered By: Curt Quiñones on 07-12-2025 Leukocyte esterase Test strip Ql (U) Negative Negative [facility] Urine pHOrdered By: Curt jeffrey on 07-12-2025 pH (U) 7.0 [pH] 5.0 - 8.0 [facility] Urine sediment bacteria coun t by microscopy (number/high power field)Ordered By: Curt Quiñones on 07-12-2025 Bacteria LM.HPF (Urine sed) [#/Area] 0 /[HPF] None Seen [facility] Urine specific gravity measu rementOrdered By: Curt Quiñones on 07-12-2025 Specific gravity (U) [Rel density] 1.010 1.002-1.03 0 [facility] Urine urobilinogen measureme ntOrdered By: Curt Ishmael on 07-12-2025 Urobilinogen Ql (U) Normal mg/dl Normal [facility] White blood cell (WBC) count Ordered By: Curt Saucedachrist on 07-12-2025 WBC (Bld) [#/Vol] 9.2 10*3/uL 4.4-11.0 [facility] White blood cell countOrdere d By: Curt Quiñones on 07-12-2025 White blood cell count 0-5 SEEN /hpf 0-5 [facility] Relevant diagnostic tests/la boratory data Narrativeon 07-06-2025 Fall risk assessment no [facility] [employer] Work Phone: MEDS REVIEW Documentation of cur rent medications (procedure) [facility] [employer] Work Phone: MEDS REVIEWD Medications reviewed with changes [facility] Work Phone: MRI HX of the right hip and right knee on 05/25/2025 at [facility]. Work Phone: XRAY HX of the right hip and right [facility] Work Phone: Magnetic resonance imaging r eportOrdered By: Saul Luong on 05-30-2025 Study report [facility] Imaging Services [address] [place], [place] [id number] Lower Ext Joint Only (Routine) MR#: [id number] Acct: [id number] Name: EDUAR FREDERICK Rep #: [id number] : 1955 F 69 From: Brandy Luong MD PCP: FREDIS Dong Status: REG CLI Study:Lower Ext Joint Only (Routine) Date of Exam: 05/25/25 Exam# [id number] Ordering Dr: Ra ryan Richardson NP-Siomara PROCEDURE: LOWER EXT JOINT ONLY (ROUTINE) 05/25/2025 [...] surface. Reading Location: [place] CC: FREDIS Richardson ~ [employer]: Signed [facility] Magnetic resonance imaging r eportOrdered By: Lynne Dhillon on 05-30-2025 Study report [facility] Imaging Services [address] [place], [place] [address] Lower Ext Joint Only (Routine) MR#: [id number] Acct: [id number] Name: EDUAR FREDERICK Rep #: [id number] : 1955 F 69 From: Corrine Dhillon MD PCP: FREDIS Dong Status: REG CLI Study:Lower Ext Joint Only (Routine) Date of Exam: 05/25/25 Exam# [id number] Ordering Dr: Ra ryan Richardson PROCEDURE: LOWER [...] Medius and common hamstring tendonitis. Reading Location: [place] [address] CC: SIGN LETTERERAnjaliC Brooke Richardson ~ [employer]: Signed [facility] Lower Ext Joint Only (Routin e)on 05-25-2025 Lower Ext Joint Only (Routine) [facility] Imaging Services [address] [place] [address] Lower Ext Joint Only (Routine) MR#: [id number] Acct: [id number] Name: BRODIEEDUAR M Rep #: [id number] : 1955 F 69 From: Saul Luong MD PCP: FREDIS Dong Status: REG CLI Study: Lower Ext Joint Only (Routine) Date of Exam: 0 05/25/25 Exam# [id number] Ordering Dr: Brooke Richardson PROCEDURE: LOWER EXT [...] the tibial surface. Reading Location: [place] CC: SIGN LETTERER-C Brooke Richardson [employer]: Signed Normal [facility] Lower Ext Joint Only (Routine) [facility] Imaging Services [address] [place] [address] Lower Ext Joint Only (Routine) MR#: [id number] Acct: [id number] Name: EDUAR FREDERICK Rep #: [id number] : 1955 F 69 From: Lynne holland MD PCP: FREDIS Dong Status: REG CLI Study: Lower Ext Joint Only (Routine) Date of Exam: 0 05/25/25 Exam# [id number] Ordering Dr: Brooke Richardson PROCEDURE: LOWER EXT [...] Medius and common hamstring tendonitis. Reading Location: [place] [address] CC: FREDIS Richardson [employer]: Signed Normal [facility] Absolute lymphocyte countOrd ered By: Brooke Richardson on 05-12-2025 Lymphocytes Auto (Unsp spec) [#/Vol] 1.93 10*3/uL 0.83-4.51 [facility] Absolute neutrophil countOrd ered By: Brooke Richardson on 05-12-2025 Neutrophils (Bld) [#/Vol] 4.7 10*3/uL 2.0-7.7 [facility] Anion gap in Serum or Plasma Ordered By: Brooke Richardson on 05-12-2025 Anion gap [Moles/Vol] 10 mmol/L 5-15 [facility] Automated lymphocyte count a s percentage of total leukocytesOrdered By: Brooke Richardson on 05-12-2025 Lymphocytes/100 WBC Auto (Unsp spec) 26.0 % 19-41 [facility] BUN/creatinine ratioOrdered By: Brooke Richardson on 05-12-2025 Urea nitrogen/Creatinine [Mass ratio] 41.2 mg/mg High 10-20 [facility] Basophil percentageOrdered B y: Brooke Richardson on 05-12-2025 Basophils/100 WBC (Bld) 0.3 % 0-1 [facility] Bilirubin, totalOrdered By: Brooke Richardson on 05-12-2025 Bilirubin [Mass/Vol] 0.39 mg/dL 0.00-1.30 [facility] CBC W/Diff, Automatedon 04-28 Absolute Lymph 1.93 X10 3/uL Normal 0.83-4.51 [facility] Comment on above: Performed By: #### L 100.0100, L500.2500 #### [facility] [address] [place], [address] Absolute Neut 4.7 X10 3/uL Normal 2.0-7.7 [facility] Comment on above: Performed By: #### L 100.0100, L500.2500 #### [facility] [address] [place], [address] Basophils/100 WBC (Bld) 0.3 % Normal 0-1 [facility] Comment on above: Performed By: #### L 100.0100, L500.2500 #### [facility] [address] [place], [address] Eosinophils/100 WBC (Bld) 1.3 % Normal 0-5 [facility] Comment on above: Performed By: #### L 100.0100, L500.2500 #### [facility] [address] [place], [address] Erythrocyte distribution width (RBC) [Ratio] 13.5 % Normal 11.6-14.6 [facility] Comment on above: Performed By: #### L 100.0100, L500.2500 #### [facility] [address] [place], [address] Hematocrit (Bld) [Volume fraction] 46.3 % Normal 37-47 [facility] Comment on above: Performed By: #### L 100.0100, L500.2500 #### [facility] [address] [place], [address] Hemoglobin (Bld) [Mass/Vol] 15.7 g/dL High 12.0-15.0 [facility] Comment on above: Performed By: #### L 100.0100, L500.2500 #### [facility] [address] [place], [address] IG% 0.100 Normal 0.0-0.9 [facility] Comment on above: Result Comment: IG% - Immature Granulocytes (promyelocytes, myelocytes and metamyelocytes) > 1% indicates that a LEFT SHIFT is Present. Performed By: #### L 100.0100, L500.2500 #### [facility] [address] [place], [address] Lymphocytes/100 WBC (Bld) 26.0 % Normal 19-41 [facility] Comment on above: Performed By: #### L 100.0100, L500.2500 #### [facility] [address] [place], [address] MCH (RBC) [Entitic mass] 32.4 pg High 27.0-32.0 [facility] Comment on above: Performed By: #### L 100.0100, L500.2500 #### [facility] [address] [place], [address] MCHC (RBC) [Mass/Vol] 33.9 g/dL Normal 32-36 [facility] Comment on above: Performed By: #### L 100.0100, L500.2500 #### [facility] [address] [place], [address] MCV (RBC) [Entitic vol] 95.5 fL Normal 81-99 [facility] Comment on above: Performed By: #### L 100.0100, L500.2500 #### [facility] [address] [place], [address] Monocytes/100 WBC (Bld) 8.2 % Normal 0-10 [facility] Comment on above: Performed By: #### L 100.0100, L500.2500 #### [facility] [address] [place], [address] Neutrophils/100 WBC (Bld) 64.1 % Normal 47-70 [facility] Comment on above: Performed By: #### L 100.0100, L500.2500 #### [facility] [address] [place], [address] Nucleated RBC (Bld) [#/Vol] 0 10*3/uL Normal 0-5 [facility] Comment on above: Performed By: #### L 100.0100, L500.2500 #### [facility] [address] [place], [address] Platelet mean volume (Bld) [Entitic vol] 10.5 fL Normal 6.2-12.0 [facility] Comment on above: Performed By: #### L 100.0100, L500.2500 #### [facility] [address] [place], [address] Platelets (Bld) [#/Vol] 231 10*3/uL Normal 150-450 [facility] Comment on above: Performed By: #### L 100.0100, L500.2500 #### [facility] [address] [place], [address] RBC (Bld) [#/Vol] 4.85 10*6/uL Normal 4.2-5.4 [facility] Comment on above: Performed By: #### L 100.0100, L500.2500 #### [facility] [address] [place], [address] RDW SD 48.0 fl High 35.1-43.9 [facility] Comment on above: Performed By: #### L 100.0100, L500.2500 #### [facility] [address] [place], [address] WBC (Bld) [#/Vol] 7.4 10*3/uL Normal 4.4-11.0 [facility] Comment on above: Performed By: #### L 100.0100, L500.2500 #### [facility] [address] [place], [address] Carbon dioxide, total [Moles /volume] in Central venous bloodOrdered By: Brooke Richardson on 05-12-2025 CO2 [Moles/Vol] 27.5 mmol/L 21.0-32.0 [facility] Chloride assayOrdered By: Ra ryan Richardson on 05-12-2025 Chloride [Moles/Vol] 102 mmol/L 98-108 [facility] Comprehensive Metabolic Prof ilon 05-12-2025 Albumin [Mass/Vol] 4.2 g/dL Normal 3.4-4.8 [facility] Comment on above: Performed By: #### L 100.0100, L500.2500 #### [facility] [address] [place], [address] Albumin/Globulin [Mass ratio] 1.7 {ratio} Normal 0.9-2.4 [facility] Comment on above: Performed By: #### L 100.0100, L500.2500 #### [facility] [address] [place], [address] ALK PHOS 84 U/L Normal 35-104 [facility] Comment on above: Performed By: #### L 100.0100, L500.2500 #### [facility] [address] [place], [address] ALT [Catalytic activity/Vol] 22 U/L Normal <=34 [facility] Comment on above: Performed By: #### L 100.0100, L500.2500 #### [facility] [address] [place], [address] AST [Catalytic activity/Vol] 27 U/L Normal <=31 [facility] Comment on above: Performed By: #### L 100.0100, L500.2500 #### [facility] [address] [place], [address] Bilirubin [Mass/Vol] 0.39 mg/dL Normal 0.00-1.30 [facility] Comment on above: Performed By: #### L 100.0100, L500.2500 #### [facility] [address] [place], [address] BUN/CRE 41.2 RATIO High 10-20 [facility] Comment on above: Performed By: #### L 100.0100, L500.2500 #### [facility] [address] [place], [address] Calcium [Mass/Vol] 9.8 mg/dL Normal 7.6-11.0 [facility] Comment on above: Performed By: #### L 100.0100, L500.2500 #### [facility] [address] [place], [address] Chloride [Moles/Vol] 102 mmol/L Normal 98-108 [facility] Comment on above: Performed By: #### L 100.0100, L500.2500 #### [facility] [address] [place], [address] CO2 [Moles/Vol] 27.5 mmol/L Normal 21.0-32.0 [facility] Comment on above: Performed By: #### L 100.0100, L500.2500 #### [facility] [address] [place], [address] Creatinine [Mass/Vol] 0.69 mg/dL Low 0.70-1.20 [facility] Comment on above: Performed By: #### L 100.0100, L500.2500 #### [facility] [address] [place], [address] GAP 10 Normal 5-15 [facility] Comment on above: Performed By: #### L 100.0100, L500.2500 #### [facility] [address] [place], [address] GFR/1.73 sq M.predicted among non-blacks MDRD (S/P/Bld) [Vol rate/Area] 94 mL/min/{1.73_m2} Normal >60 [facility] Comment on above: Result Comment: mL/m in/1.73m2 CKD-EPI Creatinine Equation (2020) Performed By: #### L 100.0100, L500.2500 #### [facility] [address] [place], [address] Globulin (S) [Mass/Vol] 2.5 g/dL Normal 2.2-4.2 [facility] Comment on above: Performed By: #### L 100.0100, L500.2500 #### [facility] [address] [place], [address] Glucose [Mass/Vol] 98 mg/dL Normal 70-99 [facility] Comment on above: Performed By: #### L 100.0100, L500.2500 #### [facility] [address] [place], [address] Potassium [Moles/Vol] 4.4 mmol/L Normal 3.3-5.1 [facility] Comment on above: Performed By: #### L 100.0100, L500.2500 #### [facility] [address] [place], [address] Sodium [Moles/Vol] 139 mmol/L Normal 133-145 [facility] Comment on above: Performed By: #### L 100.0100, L500.2500 #### [facility] [address] [place], [address] T PROT 6.8 g/dL Normal 5.9-8.4 [facility] Comment on above: Performed By: #### L 100.0100, L500.2500 #### [facility] [address] [place], [place], [id number] Urea nitrogen [Mass/Vol] 29 mg/dL High 4-19 [facility] Comment on above: Performed By: #### L 100.0100, L500.2500 #### [facility] [address] [place], [address] Eosinophil percentageOrdered By: Brooke Richardson on 05-12-2025 Eosinophils/100 WBC (Bld) 1.3 % 0-5 [facility] Erythrocyte distribution wid th ratioOrdered By: Brookegee Richardson on 05-12-2025 Erythrocyte distribution width (RBC) [Ratio] 13.5 % 11.6-14.6 [facility] Erythrocyte distribution wid th standard deviationOrdered By: [facility] on 05-12-2025 Erythrocyte distribution width (RBC) [Ratio] 48.0 fl High 35.1-43.9 [facility] Glomerular filtration rate ( GFR) estimation/1.73 sq m using serum, plasma, or whole bOrdered By: Brookegee Richardson on 05-12-2025 GFR/1.73 sq M.predicted among non-blacks MDRD (S/P/Bld) [Vol rate/Area] 94 mL/min/{1.73_m2} >60 [facility] Comment on above: mL/min/1.73m2 CKD-EP I Creatinine Equation (2020) Hematocrit Auto (Bld) [Volum e fraction]Ordered By: Brooke Richardson on 05-12-2025 Hematocrit (Bld) [Volume fraction] 46.3 % 37-47 [facility] Hemoglobin measurementOrdere d By: Brooke Richardson on 05-12-2025 Hemoglobin (Bld) [Mass/Vol] 15.7 g/dL High 12.0-15.0 [facility] Immature granulocytes/100 WB C Auto (Bld)Ordered By: Brooke Richardson on 05-12-2025 Immature granulocytes/100 WBC (Bld) 0.100 % 0.0-0.9 [facility] Comment on above: IG% - Immature Granu locytes (promyelocytes, myelocytes and metamyelocytes) > 1% indicates that a LEFT SHIFT is Present. Laboratory - Chemistry and C hemistry - challengeOrdered By: Brooke Richardson on 05-12-2025 AST [Catalytic activity/Vol] 27 U/L <32 [facility] MCV (mean corpuscular volume ) determinationOrdered By: Brooke Richardson on 05-12-2025 MCV (RBC) [Entitic vol] 95.5 fL 81-99 [facility] Magnesiumon 05-12-2025 Magnesium [Mass/Vol] 2.4 mg/dL High 1.5-2.2 [facility] Comment on above: Performed By: #### L 100.0100, L500.2500 #### [facility] [address] [place], [address] Magnesium measurement (mass/ volume)Ordered By: Brooke Richardson on 05-12-2025 Magnesium (Unsp spec) [Mass/Vol] 2.4 mg/dL High 1.5-2.2 [facility] Mean corpuscular hemoglobin (MCH) determinationOrdered By: Brookegee Richardson on 05-12-2025 MCH (RBC) [Entitic mass] 32.4 pg High 27.0-32.0 [facility] Mean corpuscular hemoglobin concentration (MCHC) determinationOrdered By: Brooke Richardson on 05-12-2025 MCHC (RBC) [Mass/Vol] 33.9 g/dL 32-36 [facility] Mean platelet volume determi nationOrdered By: Brooke Richardson on 05-12-2025 Platelet mean volume (Bld) [Entitic vol] 10.5 fL 6.2-12.0 [facility] Monocyte percentageOrdered B y: Brooke Richardson on 05-12-2025 Monocytes/100 WBC (Bld) 8.2 % 0-10 [facility] Neutrophil percentageOrdered By: Brookegee Richardson on 05-12-2025 Neutrophils/100 WBC (Bld) 64.1 % 47-70 [facility] Nucleated red blood cell per centageOrdered By: Brooke Richardson on 05-12-2025 Nucleated RBC/100 WBC (Bld) [Ratio] 0 % 0-5 [facility] Platelet countOrdered By: Ra ryan Richardson on 05-12-2025 Platelets (Bld) [#/Vol] 231 10*3/uL 150-450 [facility] Potassium measurement (mass/ volume)Ordered By: Brooke Richardson on 05-12-2025 Potassium (Unsp spec) [Mass/Vol] 4.4 mmol/L 3.3-5.1 [facility] RBC Auto (Bld) [#/Vol]Ordere d By: Brooke Richardson on 05-12-2025 RBC (Bld) [#/Vol] 4.85 10*6/uL 4.2-5.4 [facility] Serum creatinine measurement (mass/volume)Ordered By: Brooke Richardson on 05-12-2025 Creatinine [Mass/Vol] 0.69 mg/dL Low 0.70-1.20 [facility] Serum globulin measurementOr dered By: Brooke Richardson on 05-12-2025 Globulin (S) [Mass/Vol] 2.5 g/dL 2.2-4.2 [facility] Serum glucose measurement (m ass/volume)Ordered By: Brooke Richardson on 05-12-2025 Glucose [Mass/Vol] 98 mg/dL 70-99 [facility] Serum or plasma alanine grey otransferase (ALT) measurementOrdered By: Brooke Richardson on 05-12-2025 ALT [Catalytic activity/Vol] 22 U/L <35 [facility] Serum or plasma albumin lela urement (mass/volume)Ordered By: Brooke Richardson on 05-12-2025 Albumin [Mass/Vol] 4.2 g/dL 3.4-4.8 [facility] Serum or plasma albumin/glob ulin mass ratioOrdered By: Brooke Richardson 05-12-2025 Albumin/Globulin [Mass ratio] 1.7 {ratio} 0.9-2.4 [facility] Serum or plasma alkaline chichi sphatase measurementOrdered By: Brooke Richardson on 05-12-2025 ALP [Catalytic activity/Vol] 84 U/L 35-104 [facility] Serum or plasma calcium lela urement (mass/volume)Ordered By: Brooke Richardson on 05-12-2025 Calcium [Mass/Vol] 9.8 mg/dL 7.6-11.0 [facility] Serum or plasma urea nitroge n measurement (mass/volume)Ordered By: Brooke Richardson on 05-12-2025 Urea nitrogen [Mass/Vol] 29 mg/dL High 4-19 [facility] Sodium levelOrdered By: Christie Richardson on 05-12-2025 Sodium [Moles/Vol] 139 mmol/L 133-145 [facility] Total proteinOrdered By: Colin Richardson on 05-12-2025 Protein [Mass/Vol] 6.8 g/dL 5.9-8.4 [facility] Vitamin B12on 05-12-2025 Cobalamin (Vitamin B12) [Mass/Vol] 1114 pg/mL High 180-914 [facility] Comment on above: Performed By: #### L 100.0100, L500.2500 #### [facility] [address] [place], [place], [id number] Vitamin B12 ser/plasOrdered By: Brooke Richardson on 05-12-2025 Cobalamin (Vitamin B12) [Mass/Vol] 1114 pg/mL High 180-914 [facility] Vitamin D,25 Hydroxyon 05-12 Vitamin D 25-OH 52.7 ng/mL Normal 30-100 [facility] Comment on above: Result Comment: Ila min D Status Deficiency: <20 ng/mL (50nmol/L) Insufficiency: 20-30 ng/mL (50-75 nmol/L) Sufficiency: 30-100 ng/mL (75-250 nmol/L) Toxicity: >100 ng/mL (>250 nmol/L) Performed By: #### L 100.0100, L500.2500 #### [facility] [address] [place], [address] White blood cell (WBC) count Ordered By: Brooke Richardson on 05-12-2025 WBC (Bld) [#/Vol] 7.4 10*3/uL 4.4-11.0 [facility] EMERGENCY REPORTon EMERGENCY REPORT [facility] EMERGENCY ROOM REPORT NAME ACCOUNT SEX AGE ADMIT DISCHARGE PT MED. RECORD# NUMBER DATE DATE TYPE EDUAR FREDERICK [id number] F 65 07/13/21 07/13/21 3 M [id number] ROOM: ER DATE OF : 1955 DICTATING [...] elevation or depression. Page 1 of 2 BRODIEEDUAR [facility] Emergency Room Report EDUAR FREDERICK : 1955 EMERGENCY DEPARTMENT COURSE AND TREATMENT: At this time, she is not hypoxic. She wants to go home. I gave her a shot of Rocephin here and discharged her on Augmentin and prednisone. Follow up with the family doctor in 2 days. Return for increasing, worsening or new symptoms. DIAGNOSIS: Pneumonia. Dictated By: Ayla Aviles DO 07/13/21 11:43 JOB #: [id number] Transcribed By: diego 07/15/21 11:38 Electronically signed by: E-Sign: AYLA AVILES MD 07/18/21 11:48 Page 2 of 2 EDUAR FREDERICK Emergency Room Report Normal [facility] BMP with eGFRon 07-13-2021 AGE 65 years Normal [facility] Comment on above: Performed By: #### 2 60675 #### [facility],[address] [place] [address] Anion gap [Moles/Vol] 14 mmol/L Normal - 20 [facility] Comment on above: Performed By: #### 2 92857 #### [facility],[address] [place] [address] BMP with eGFR Normal [facility] Comment on above: Result Comment: BASI C METABOLIC PANEL Performed By: #### 2 24112 #### [facility],[address] [place] [address] Calcium [Mass/Vol] 8.3 mg/dL Low 8.5 - 10.1 [facility] Comment on above: Performed By: #### 2 82996 #### [facility],[address] [place] [address] Chloride [Moles/Vol] 101 mmol/L Normal 98 - 107 [facility] Comment on above: Performed By: #### 2 87268 #### [facility],[address] [place] [address] CO2 [Moles/Vol] 24.6 mmol/L Normal 21.0 - 32.0 [facility] Comment on above: Performed By: #### 2 64761 #### [facility],[address] [place] [address] Creatinine [Mass/Vol] 0.87 mg/dL Normal 0.55 - 1.02 [facility] Comment on above: Performed By: #### 2 40279 #### [facility],[address] [place] [address] GFR/1.73 sq M.predicted among non-blacks MDRD (S/P/Bld) [Vol rate/Area] mL/min/{1.73_m2} Normal 60 - 999 [facility] Comment on above: Performed By: #### 2 96386 #### [facility],[address] [place] [address] Result Comment: ACCO RDING TO THE NATIONAL KIDNEY DISEASE EDUCATION PROGRAM(NKDE), A NORMAL eGFR IS A VALUE GREATER THAN OR EQUAL TO 60 ML/MIN/1.73 SQ METERS. CHRONIC KIDNEY DISEASE: <60mL/MIN/1.73 SQ METERS KIDNEY FAILURE: <15mL/MIN/1.73 SQ METERS THIS TEST SHOULD ONLY BE USED FOR PATIENTS 18 YEARS OF AGE AND OLDER. Glucose [Mass/Vol] 116 mg/dL High 74 - 106 [facility] Comment on above: Performed By: #### 2 02341 #### [facility],[address] [place] [address] Potassium [Moles/Vol] 4.0 mmol/L Normal 3.5 - 5.1 [facility] Comment on above: Performed By: #### 2 17065 #### [facility],[address] [place] [address] Sodium [Moles/Vol] 136 mmol/L Normal 136 - 145 [facility] Comment on above: Performed By: #### 2 01799 #### [facility],[address] [place] [address] Urea nitrogen [Mass/Vol] 12 mg/dL Normal 7 - 18 [facility] Comment on above: Performed By: #### 2 94084 #### [facility],[address] [place] [address]2075 CBC + DIFFon 07-13-2021 Baso # 0.00 x10EE3/UL Normal 0.00 - 0.10 [facility] Comment on above: Performed By: #### 2 10178 #### [facility],[address] [place], [place] [address] Basophils/100 WBC (Bld) 0.3 % Normal 0.0 - 2.0 [facility] Comment on above: Performed By: #### 2 79448 #### [facility],[address] [place] [address] CBC + DIFF Normal [facility] Comment on above: Result Comment: CBC- COMPLETE BLOOD COUNT Performed By: #### 2 31654 #### [facility],[address] [place] [address] EO # 0.00 x10EE3/UL Normal 0.00 - 0.50 [facility] Comment on above: Performed By: #### 2 78424 #### [facility],[address] [place], [place] [id number] Eosinophils/100 WBC (Bld) 0.3 % Normal 0.0 - 7.0 [facility] Comment on above: Performed By: #### 2 57501 #### [facility],[address] [place] [address] Erythrocyte distribution width (RBC) [Ratio] 13.4 % Normal 12.0 - 15.6 [facility] Comment on above: Performed By: #### 2 61375 #### [facility],[address] [place] [address] Hematocrit (Bld) [Volume fraction] 43.7 % Normal 34.0 - 46.0 [facility] Comment on above: Performed By: #### 2 24417 #### [facility],[address] [place], [place] [address] Hemoglobin (Bld) [Mass/Vol] 15.5 g/dL Normal 12.0 - 16.0 [facility] Comment on above: Performed By: #### 2 72210 #### [facility],[address] [place] [address] Lymph # 0.70 x10EE3/UL Low 0.80 - 2.80 [facility] Comment on above: Performed By: #### 2 33225 #### [facility],[address] [place] [address] Lymphocytes/100 WBC (Bld) 14.5 % Low 20.0 - 45.0 [facility] Comment on above: Performed By: #### 2 56279 #### [facility],[address] [place] [address] MANUAL DIFF N/A Normal [facility] Comment on above: Performed By: #### 2 44966 #### [facility],[address] [place] [address] MCH (RBC) [Entitic mass] 32 pg Normal 27 - 33 [facility] Comment on above: Performed By: #### 2 73749 #### [facility],[address] [place] [address] MCHC 36 X10 3 Normal 32 - 36 [facility] Comment on above: Performed By: #### 2 40827 #### [facility],[address] [place] [address] MCV (RBC) [Entitic vol] 91 fL Normal 80 - 99 [facility] Comment on above: Performed By: #### 2 11579 #### [facility],[address] [place] [address]2502 Barnes # 0.40 x10EE3/UL Normal 0.20 - 1.00 [facility] Comment on above: Performed By: #### 2 65228 #### [facility],[address] [place] [address]682 MONOS % 8.7 % Normal 0.0 - 10.0 [facility] Comment on above: Performed By: #### 2 37813 #### [facility],[address] [place] [address]27 Morphology Dhruv (Bld) [Interp] N/A Normal [facility] Comment on above: Result Comment: {CD] Performed By: #### 2 53781 #### [facility],[address] [place] [address]281 Neut # 3.90 x10EE3/UL Normal 1.50 - 7.10 [facility] Comment on above: Performed By: #### 2 33904 #### [facility],[address] [place] [address] 14325 Neutrophils/100 WBC (Bld) 76.2 % High 46.0 - 76.0 [facility] Comment on above: Performed By: #### 2 62684 #### [facility],[address] [place] [address]31 PLATELET 219 x10EE3/UL Normal 150 - 450 [facility] Comment on above: Performed By: #### 2 13463 #### [facility],[address] [place] [address]9938 Platelet mean volume (Bld) [Entitic vol] 8.4 fL Normal 6.6 - 10.5 [facility] Comment on above: Result Comment: AUTO MATED DIFFERENTIAL Performed By: #### 2 81292 #### [facility],[address] [place] [address]7 RBC 4.81 x 10EE6/UL Normal 4.10 - 5.30 [facility] Comment on above: Performed By: #### 2 55503 #### [facility],[address] [place] [address]18 WBC 5.1 x 10EE3/UL Normal 4.5 - 10.8 [facility] Comment on above: Performed By: #### 2 11070 #### [facility],[address] [place] [address]3516 CHEST 1 VIEWon 07-13-2021 CHEST 1 VIEW [place] [address] Patient: EDUAR FREDERICK Phone#: : 1955 Age: 65 Gender: F Pt. Type: ER Account: [id number] Location: [facility] Ordering: DR. AYLA AVILES Exam Date: 07/13/2021/10:19 Family Phys: Charge Code: [id number] Physician: Vigo Order #: [id number] [id number] Dose#: PROCEDURE: X-RAY CHEST 1 VIEW [...] Desai MD on 07/13/2021 at 21:04 Normal [facility] CORONAVIRUS (SARS) ANTIGEN T ESTon 07-13-2021 EXTERNAL QC DONE? YES Normal [facility] Comment on above: Performed By: #### 2 05132 #### [facility],[address] [place] [address] INTERNAL CONTROL PASS Normal [facility] Comment on above: Performed By: #### 2 89718 #### [facility],[address] [place] [address] SARS ANTIGEN Negative Normal NORMAL: NEGATIVE [facility] Comment on above: Performed By: #### 2 09816 #### [facility],[address] [place] [address]18 SEND TO ? YES Normal [facility] Comment on above: Result Comment: SARS -CoV-2 THIS TEST IS BEING USED UNDER THE FDA EUA PROCEDURE. THIS ASSAY HAS BEEN VALIDATED AT [facility] FOR USE WITH NASAL AND NASOPHARYNGEAL SWAB [...] PUBLIC HEALTH AUTHORITIES. Performed By: #### 2 58652 #### [facility],[address] [place], [place] [address] NT-proBNPon 07-13-2021 Natriuretic peptide B (Bld) [Mass/Vol] 96 pg/mL Normal 0 - 125 [facility] Comment on above: Performed By: #### 2 84178 #### [facility],[address] [place] [address] TROPONIN I, HIGH SENSITIVITY on 07-13-2021 HS TROPONIN 9.3 pg/mL Normal 0.0 - 51.4 [facility] Comment on above: Performed By: #### 2 58412 #### [facility],[address] [id number] Vital Signs Date Time Vital Sign Value Performing Clinician Facility 07-13-2025 08:13-0400 Body height 154.94 cm Brooke Dylan SIGN LETTERER-C Work Phone: [facility] 07-13-2025 08:13-0400 Body mass index (BMI) [Ratio] 28.1 kg/m2 Brooke Dylan SIGN LETTERER-C Work Phone: [facility] 07-13-2025 08:13-0400 Body weight 67.58 kg Brooke Dylan SIGN LETTERER-C Work Phone: [facility] 07-13-2025 08:13-0400 Diastolic blood pressure 86 mm[Hg] Brooke Dylan SIGN LETTERER-C Work Phone: [facility] 07-13-2025 08:13-0400 Heart rate 69 /min Brooke Dylan SIGN LETTERER-C Work Phone: [facility] 07-13-2025 08:13-0400 Respiratory rate 16 /min Brooke Dylan SIGN LETTERER-C Work Phone: [facility] 07-13-2025 08:13-0400 Systolic blood pressure 152 mm[Hg] Brooke Dylan SIGN LETTERER-C Work Phone: [facility] 07-12-2025 23:27-0400 Body temperature 97.9 [degF] Brooke Dylan SIGN LETTERER-C Work Phone: [facility] 07-12-2025 23:27-0400 Diastolic blood pressure 93 mm[Hg] Brooke Dylan SIGN LETTERER-C Work Phone: [facility] 07-12-2025 23:27-0400 Heart rate 74 /min Brooke Dylan SIGN LETTERER-C Work Phone: [facility] 07-12-2025 23:27-0400 Respiratory rate 16 /min Brooke Dylan SIGN LETTERER-C Work Phone: [facility] 07-12-2025 23:27-0400 SaO2% (BldA) [Mass fraction] 99 % Brooke Richardson SIGN LETTERER-C Work Phone: [facility] 07-12-2025 23:27-0400 Systolic blood pressure 167 mm[Hg] Brooke Richardson SIGN LETTERER-C Work Phone: [facility] 07-12-2025 20:21-0400 Body mass index (BMI) [Ratio] 28 kg/m2 Brooke Richardson SIGN LETTERER-C Work Phone: [facility] 07-12-2025 20:21-0400 Body weight 67.5 kg Brooke Richardson SIGN LETTERER-C Work Phone: [facility] 07-06-2025 08:55-0400 Body height 154 cm Harshal Ron MD Work Phone: [facility] 07-06-2025 08:55-0400 Body height 153.67 cm Harshal Ron MD Work Phone: [facility] 07-06-2025 08:55-0400 Body mass index (BMI) [Ratio] 29.5 kg/m2 Harshal Rno MD Work Phone: [facility] 07-06-2025 08:55-0400 Body weight 70 kg Harshal Ron MD Work Phone: [facility] 07-06-2025 08:55-0400 Body weight 69.4 kg Harshal Ron MD Work Phone: [facility] 07-06-2025 08:55-0400 BP SITE #1 Harshal Ron MD Work Phone: [facility] 07-06-2025 08:55-0400 BP SITE #2 Harshal Ron MD Work Phone: [facility] 07-06-2025 08:55-0400 Diastolic blood pressure 86 mm[Hg] Harshal Ron MD Work Phone: [facility] 07-06-2025 08:55-0400 Diastolic blood pressure 80 mm[Hg] Harshal Ron MD Work Phone: [facility] 07-06-2025 08:55-0400 Heart rate 72 /min Harshal Ron MD Work Phone: [facility] 07-06-2025 08:55-0400 HGHTCHNVIS Harshal Ron MD Work Phone: [facility] 07-06-2025 08:55-0400 Systolic blood pressure 145 mm[Hg] Harshal Ron MD Work Phone: [facility] 07-06-2025 08:55-0400 Systolic blood pressure 147 mm[Hg] Harshal Ron MD Work Phone: [facility] 07-06-2025 08:55-0400 VITALSDONE Harshal Ron MD Work Phone: [facility] Encounters Encounter Date Encounter Type Care Provider Facility Start: 07-25-2025 ambulatory [facility] Facility:[facility] Start: 07-13-2025 Encounter for preprocedural cardiovascular examination John Pérez [facility] Start: 07-13-2025 End: 07-13-[address] John Pérez DO [facility] Work Phone: Start: 07-13-2025 End: 07-13-[address] John Pérez DO [facility] Start: 07-13-2025 End: 07-13-2025 ambulatory [facility] Facility:[facility] Start: 07-12-2025 End: 07-12-2025 Emergency department patient visit [facility] Facility:[facility] Start: 07-11-2025 Patient encounter status Emily Richardson SIGN LETTERER-C Work Phone: [facility] Comment on above: - RCRI: 1 (history o f MD), METs greater than 4. Patient without active cardiac conditions. Start: 07-06-2025 In-person encounter Harshal olguin MD Work Phone: [facility] Work Phone: Start: 07-06-2025 Visit out of hours Harshal Hubbard MD Work Phone: [employer] [facility]. Work Phone: Start: 06-14-2025 Encounter for genera l adult medical examination with abnormal findings Brooke Richardson [facility] Start: 05-25-2025 End: 05-25-2025 ambulatory Brooke Richardson SIGN LETTERER-C Work Phone: -[facility] Start: 05-25-2025 End: 05-25-2025 Patient encounter procedure Brooke Richardson NP-C -[facility] Work Phone: Start: 05-25-2025 End: 05-25-2025 ambulatory Brooke Richardson Facility:[facility] Start: 05-12-2025 End: 05-12-2025 ambulatory Brooke Richardson SIGN LETTERER-C Work Phone: -Laboratory Rohith Adames [facility] Start: 05-12-2025 End: 05-12-2025 Patient encounter procedure Brooke Richardson SIGN LETTERER-C -Laboratory Rohith Adames [facility] Start: 05-12-2025 End: 05-12-2025 ambulatory Brooke Richardson Facility:[facility] Start: 07-13-2021 End: 07-13-2021 [facility] Procedures Date Procedure Procedure Detail Performing Clinician Start: 07-12-2025 CT of abdomen and pe lvis without contrast Brooke Richardson SIGN LETTERER-C Work Phone: Start: 07-12-2025 Estimated creatinine clearance Brooke Richardson SIGN LETTERER-C Work Phone: Start: 07-12-2025 Urnls dip stick/tabl et reagent auto microscopy Brooke Richardson SIGN LETTERER-C Work Phone: Start: 07-06-2025 Blood pressure outsi de of [...] joint of lowe r extremity Brooke Richardson SIGN LETTERER-C Work Phone: Start: 05-12-2025 Vitamin D, 25-hydrox y measurement Brooke Richardson SIGN LETTERER-C Work Phone: Comment on above: Vitamin D StatusDefi ciency: <20 ng/mL (50nmol/L)Insufficiency: 20-30 ng/mL (50-75 nmol/L)Sufficiency: 30-100 ng/mL (75-250 nmol/L)Toxicity: >100 ng/mL (>250 nmol/L) Plan of Treatment Date Care Activity Detail Author Start: 07-13-2025 End: 07-13-2025 Evaluation of diagnostic study results [facility] Patient Education ED Abdominal P ain Unkn Cause Fem ED Hypertension, To Be Confirmed ED Pelvic Pain, Unknown Cause [facility] Work Phone: Payers Date Payer Category Payer Unknown [id number] 2025 Self-pay Unknown [id number] Unknown [id number] [id number] [id number] Unknown [id number] 2.16.8 [id number] Unknown [id number] 2.16.8 [id number] Unknown [id number] 2.16.8 [id number] Social History Date Type Detail Facility Tobacco smoking stat us GAIS Unknown if ever smoked [facility] Work Phone: Start: 1955 Sex Assigned At Female W [facility] Start: 07-06-2025 social history revie wed E&M Done [facility] Start: 07-06-2025 End: 07-13-2025 Tobacco smoking status Never smoked tobacco (finding) [facility] Mental Status Date Assessment Result Facility 07-06-2025 Cognitive Function house [facility] Work Phone: Progress note 07-13-2025 Note Date & Type Note Facility 07-13-2025 Progress note [facility] Discharge summary 07-12-2025 Note Date & Type Note Facility 07-12-2025 Discharge summary [facility] Radiology Diagnostic study note 07-12-2025 Note Date & Type Note Facility 07-12-2025 Radiology Diagnostic study note [facility] Imaging Services [address] [place], [place] [id number] Abdomen/Pelvis without Cont MR#: [id number] Acct: [id number] Name: EDUAR FREDERICK Rep #: [id number] : 1955 F 69 From: Cal Rhodes MD PCP: FREDIS Dong Status: REG ER Study:Abdomen/Pelvis without Cont Date of Exa m: 07/12/25 Exam# [id number] Ordering Dr: Curt Quiñones MD PROCEDURE: ABDOMEN/PELVIS WITHOUT CONT 07/12/2025 REASON FOR EXAM: KIDNEY STONE TECHNIQUE: Procedure Code: CTABDPEL Modality: CT Procedure: ABDOMEN/PELVIS WITHOUT CONT Noncontrast technique limits evaluation of the abdominal and pelvic viscera. Coronal and Sagittal reconstruction series were provided. One or more dose reduction techniques were used (e.g., Automated exposure control, adjustment of the mA and/or kV according to patient size, use of iterative reconstruction technique). FINDINGS: The lung bases are clear. The peripheral soft tissues unremarkable. Degenerative changes of the spine. Grade 1 anterolisthesis of L4 on L5. Moderate atherosclerosis. No lymphadenopathy. The liver, gallbladder, pancreas, spleen, and adrenals unremarkable. The kidneys are unremarkable. No hydronephrosis. Normal caliberlarge and small bowel without surrounding inflammatory changes. CT/Abdomen/Pelvis without Cont IMPRESSION: No nephrolithiasis or obstructive uropathy. Reading Location: [address] CC: SIGN LETTERER-C Brooke Richardson; Dr. Curt Quiñones MD ~ [employer]: Signed [facility] Discharge summary 07-12-2025 Note Date & Type Note Facility 07-12-2025 Discharge summary Note Date/Time July 12, 2025 11:00pm [facility] Medical Records Department [address] [place] [address] Emergency Department Summary 07/12/25 MR#: [id number] Acct: [id number] Name: EDUAR FREDERICK Rep #:[id number] : 1955 69 From: Curt Quiñones MD PCP: FREDIS Dong Status:REG ER Location: ED HPI History of Present Illness Chief Complaint: Abd Pain Narrative Narrative: 69-year-old female who denies significant past medical history presents with suprapubic to left-sided flank pain that began a few hours ago. Its improved since then. She states that it was more of a sharp stabbing pain that she was having intravaginally and radiating upwards, perhaps more to the left. She denies any fevers or chills, no dysuria or hematuria, no exacerbating or alleviating factors. She did note that she had an episode like this within the last week that only lasted about an hour. She was nauseated but did not vomit. No problems with bowel movements, no diarrhea. [facility] Medical History Atherosclerotic heart disease of inupiat coronary artery without angina pectoris Hyperlipidemia History of MD (myocardial infarction) (~2005) Home Medications ?Medication ?Instructions ?Recorded ?Last Taken ?Type amlodipine 5 mg tablet 5 mg PO DAILY #14 tabs 07/12 Unknown Rx Allergy/AdvReac Type Severity Reaction Status Date / Time Iodinated Contrast Media AdvReac Unknown Difficulty Verified 07/12/25 19:54 (IVP dye) breathing Surgical History History of esophagogastroduodenoscopy (EGD) Scar tissue History of appendectomy Social History Smoking Status: Never smoker substance use type: does not use ROS ROS ED ROS Narrative Review of systems positive for suprapubic to left sided abdominal pain/flank pain. No dysuria or hematuria. No fevers or chills. Positive nausea but no vomiting. EXAM Physical Exam Narrative Exam Narrative: Afebrile. Vital signs noted. Nontoxic-appearing. Cardiovascular exam regular rate and rhythm. Lungs are clear to auscultation bilaterally. Abdomen is soft with minimal tenderness to palpation in the suprapubic area, no rebound or guarding. Positive bowel sounds. No CVA tenderness to percussion bilaterally. Const Vital Signs: 07/12/25 19:51 07/12/25 21:51 Temperature 97.8 F Temperature Source Temporal Pulse Rate 82 70 Respiratory Rate 16 18 Blood Pressure 193/110 H 154/91 H Blood Pressure Mean 137 112 Pulse Ox 99 Oxygen Delivery Method Room Air MDM MDM MDM Narrative Medical decision making narrative: Differential diagnosis includes but not limited to ureterolithiasis versus cystitis versus pyelonephritis versus diverticulitis. History and physical doesnot support diverticulitis patient not having problems with bowel movements. I reviewed her laboratory work and she has a normal white count of 9.2 with hemoglobin 16.2, hematocrit 45.9, platelet count 201. BMP is remarkable for glucose of 143 with BUN of 36 and creatinine 0.98. Sodium and potassium normal. Urinalysis is negative for ketones, negative for infection with 0-5 WBCs and 0-5 RBCs. 0 bacteria. I do not feel antibiotics are indicated. I reviewed the radiology report of the CT of the abdomen and pelvis without contrast, there is no obstructive uropathy, no hydronephrosis, no acute process. After Toradol, her pain has improved. I am unsure to the cause of her suprapubic to left flank pain. However, I do feel she can be discharged safely home with follow-up. She had fluctuating blood pressure, initially 193/110, then down to 154/91. She is asymptomatic with this without chest pain or shortness of breath. She was told to keep a log of her blood pressures and she states that she is had readings of 147 with elevated diastolic in the past. Although she is asymptomatic, with her fluctuating blood pressure as high as 188systolic, she was given an amlodipine 5 mg tablet here and prescription written to take daily for the next 2 weeks. She should follow-up with her primary care provider within the next 1 to 2 weeks. Return instructions to the emergency department were reviewed. Disposition is discharged home in stable condition. History & Record Review Discussion w/independent historian: Patient Additional record(s) reviewed:: Prior ED visit (No prior ED visits) Lab Data Attestation: I reviewed the patient's lab results. Labs: Laboratory Results - last 24 hr 07/12/25 20:30 WBC 9.2 RBC 4.98 Hgb 16.2 H Hct 45.9 MCV 92.2 MCH 32.5 H MCHC 35.3 RDW Std Deviation 45.6 H RDW Coeff of Adolfo 13.4 Plt Count 201 MPV 9.6 Immature Gran % (Auto) 0.300 Neut % (Auto) 87.4 H Lymph % (Auto) 7.9 L Barnes % (Auto) 4.1 Eos % (Auto) 0.1 Baso % (Auto) 0.2 Absolute Neuts (auto) 8.0 H Absolute Lymphs (auto) 0.73 L Nucleated RBC % 0 Sodium 139 Potassium 4.2 Chloride 103 Carbon Dioxide 22.7 Anion Gap 13 BUN 36 H Creatinine 0.98 Estim Creat Clear Calc 47.62 L Est GFR (MDRD) Non-Af 63 BUN/Creatinine Ratio 36.7 H Glucose 143 H Calcium 9.8 Urine Color Yellow Urine Clarity Clear Urine pH 7.0 Ur Specific Davis 1.010 Urine Protein 30 H Urine Glucose (UA) Normal Urine Ketones Negative Urine Occult Blood 50 H Urine Nitrite Negative Urine Bilirubin Negative Urine Urobilinogen Normal Ur Leukocyte Esterase Negative Urine RBC 0-5 SEEN Urine WBC 0-5 SEEN Ur Squamous Epith Cells 0 SEEN Urine Bacteria 0 SEEN Urine Mucus 0 SEEN Radiography Diagnostic Testing: Clinical Impression(s) from Imaging Studies Abdomen/Pelvis CT 07/12/25 20:46 IMPRESSION: No nephrolithiasis or obstructive uropathy. Reading Location: [address] Discharge Plan Triage Chief Complaint: Abd Pain ED Provider: Curt Quiñones Dx/Rx/DC Orders Clinical Impression: Abdominal pain, Flank pain, Elevated blood pressure reading without diagnosis of hypertension Instructions: ED Abdominal Pain Unkn Cause Fem, ED Hypertension, To Be Confirmed, ED Pelvic Pain, Unknown Cause Prescriptions: New amlodipine 5 mg tablet 5 mg PO DAILY Qty: 14 0RF Primary Care Provider: Brooke Richardson Referrals: Brooke Richardson, FREDIS [Primary Care Provider, Family Practice] - As soon as possible Activity Restrictions/Additional Instructions: Keep a log of your blood pressures for your primary care provider. You may needto start medication regarding your blood pressure should it be consistently elevated. Return with fever, increased pain, new or worsening symptoms. Print Language: Syriac Disposition Disposition: Home, Self Care What to do if you have Problems For any increased pain, shortness of breath, bleeding, nausea or vomiting, chestpain, or any unexpected problems, contact your Primary Care Provider. Call [facility] ([phone]) or report to the closest Emergency Room. Call 911 if necessary. 07/12/25 2300 <Electronically signed by Curt Quiñones MD> Cosigner Signature (if applicable): CC: SIGN LETTERER-C Brooke Richardson ~ Signed [facility] Work Phone: Evaluation note Note Date & Type Note Facility Evaluation note No assessment information availa ble [facility] Work Phone: Evaluation note Note Date & Type Note Facility Evaluation note Diagnosis Onset Date Resolution HTN, goal below 130/80 acute Oc tober 2024 7:58am Preop cardiovascular exam acute July 13 7:58am Chronic coronary artery disease chronic July 13 7:58am Hyperlipidemia chronic July 132024 7:58am [facility] Work Phone: Hospital Discharge instructions Note Date & Type Note Facility Hospital Discharge instructions Additional Instructions Keep a log of your blood pressures for your primary care provider. You may need to start medication regarding your blood pressure should it be consistently elevated. Return with fever, increased pain, new or worsening symptoms. [facility] Work Phone: Progress note Note Date & Type Note Facility Progress note Note Date/Time July 13, 2025 8:49am [facility] [address] [place] [address] OFFICE VISIT Date of Service: 07/13/25 MR#: [id number] Acct: [id number] Name: EDUAR FREDERICK Rep #: [id number] : 1955 Provider: Dr. Crescencio Pérez DO Age/Sex: 69/F Location: [facility] Status: Signed HPI HPI History of Present Illness Details: Mr. Frederick is a 69-year-old female with significant past medical history of reported MD in 2005, hyperlipidemia, and chronic musculoskeletal pain in her right hip and knee. She presented to the ED yesterday for flank pain. She was noted to be hypertensive and started on amlodipine [address] imaging was negative and patient was discharged. Today, she presents to the office for preoperative cardiac evaluation for right hip replacement at [facility]. It has been noted from her primary care physician that she has medication intolerance, but per her last visit notes her blood pressure was relatively well-controlled ~130/80. Patient is seen today in clinic accompanied by her . Patient states that she has chronic right leg pain stemming from a traumatic accident years ago. She has no acute complaints and otherwise feels well. She has no activity limiting or exertional symptoms. She is regularly able to climb multiple flights of stairs without difficulty. She feels much improved from her ED visit yesterday, is currently pain-free and believes she passed a kidney stone. Regarding her history of MD in 2005, patient admits that she underwent coronary angiography at [facility]. She endorses there was a 70% blockage in a distal vessel that was not amenable to stenting. She regularly followed with [facility] regularly for a few years of this but has not seen one in many years. She does endorse she likely had an echocardiogram during her follow-up. She is not taking any prescription medications, follows with an outside clinic for lipid labs, and has been off aspirin for many years. She hasnot started the amlodipine that she was prescribed yesterday. During her visit today, she is hesitant to start any prescription medications and prefers to use herbal supplements as she is feeling well without any complaints. She cites medication side effects with any previous medications. Her blood pressure at home ranges from roughly 120/70 to 150/90. 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 Required: No Accompanied by: Is patient in pain?: No Allergies Iodinated Contrast Media (IVP dye) Adverse Reaction (Unknown, Verified 07/13/25 08:22) Difficulty breathing Medications ?Medication ?Instructions ?Recorded ?Confirmed ?Type amlodipine 5 mg tablet 5 mg PO DAILY PRN 07/13/25 History Have you fallen in the past year?: No PFSH Medical History Atherosclerotic heart disease of inupiat coronary artery without angina pectoris Hyperlipidemia History of MD (myocardial infarction) (~2005) Surgical History History of esophagogastroduodenoscopy (EGD) Scar tissue History of appendectomy Family History (Updated 07/13/25 @ 08:17 by Claritza Brennan) Father Myocardial infarction, Onset Age: 66 Mother Hypertension Sister Diabetes CVA (cerebral vascular accident) Sister Prediabetes Brother CAD (coronary artery disease) Stents Social History Smoking Status: Never smoker alcohol intake: never substance use type: does not use caffeine: Yes Type: coffee ROS ROS Narrative 14 point review of systems reviewed, and negative except as listed above in HPI Cardiology Exam Exam Narrative ?Gen: A&Ox3, NAD ?HEENT: Normocephalic/Atraumatic, MMM ?Neck: Supple, no JVD ?Pulm: Normal work of breathing, CTA bilaterally with no wheezes or crackles ?CV: RRR, normal S1/S2, no m/r/g ?Abd: Soft, NT/ND ?Extr: Warm to touch, no LE edema, distal pulses intact and symmetric in upper and lower extremities ?Neuro: No gross focal deficits, normal speech ?Psych: Normal affect, answers questions appropriately Assessment and Plan Assessment and Plan (1) Chronic coronary artery disease: Status: Chronic Comment: -Reported myocardial infarction in 2006, angiogram at [facility] without intervention or stent -Goal LDL at least below 70; blood pressure goal below 130/80 -Outside records from MD in 2005 not available today, will request -EKG reviewed today in clinic-normal sinus rhythm, no Q waves or signs of ischemia or previous infarction Plan: - Educated patient on the importance of blood pressure management with antihypertensive therapy, aspirin 81 mg daily continuation, and statin therapy for secondary prevention of MD. - Patient does not wish to start pharmacologic management today and prefers to maintain her supplements - Will consider repeat echocardiogram at next visit for baseline (2) HTN, goal below 130/80: Status: Acute Comment: - Elevated in clinic today to 152/86; home blood pressure average greater than 130/80 - Patient wishes to remain off pharmacologic therapy - Educated patient if she changes her mind to start amlodipine 5 mg (previously prescribed by ED) in the interim - Continue home blood pressure monitoring and follow-up with PCP (3) Preop cardiovascular exam: Status: Acute Comment: - RCRI: 1 (history of MD), METs greater than 4. Patient without active cardiac conditions. Plan: - No further cardiac testing indicated prior to orthopedic surgery listed above (4) Hyperlipidemia: Status: Chronic Qualifiers: Hyperlipidemia type: unspecified Qualified Code(s): E78.5 - Hyperlipidemia, unspecified Comment: - Managed by PCP and outside laboratory; endorses LDL elevated in past Plan: - Will consider repeat lipid panel at 6 months follow-up and will repeat visit possible statin initiation Orders: Orders 12 Lead EKG performed by [facility] Today I10 - Essential (primary) hypertension, I25.10 - Atherosclerotic heart disease of inupiat coronary artery without angina pectoris, R03.0 - Elevated blood-pressure reading, without diagnosis of hypertension, Z01.810 - Encounter for preprocedural cardiovascular examination Coding Level of Care Code Off vis,new,level 4 History Expanded Problem Focused Exam Expanded Problem Focused Medical Decision Making Moderate Complexity Diagnoses Chronic coronary artery disease I25.10 HTN, goal below 130/80 I10 Preop cardiovascular exam Z01.810 Hyperlipidemia, unspecified hyperlipidemia type E78.5 Hyperlipidemia type: unspecified Time Spent (min) 60 Comment Time spent in direct patient care and its related components Coding Level of Care Code Off vis,new,level 4 History Expanded Problem Focused Exam Expanded Problem Focused Medical Decision Making Moderate Complexity Diagnoses Chronic coronary artery disease I25.10 HTN, goal below 130/80 I10 Preop cardiovascular exam Z01.810 Hyperlipidemia, unspecified hyperlipidemia type E78.5 Hyperlipidemia type: unspecified Time Spent (min) 60 Comment Time spent in direct patient care and its related components Clinical Quality Measures Falls Risk Screening/Assistive Devices Have you fallen in the past year?: No 07/13/25 0914 <Electronically signed by John Pérez DO> Date _ John Pérez DO Cosigner Signature: Date (if applicable) CC: FREDIS Richardson ~ [facility] Work Phone: Reason for referral (narrative) Note Date & Type Note Facility Reason for referral (narrative) No reason for referral information available [facility] Work Phone: Summary Purpose Family History Family Member Condition Full Brother Heart disease Full Brother Diabetes - insulin d ependent Full Sister High blood pressure Full Sister Diabetes - non-insul in dependent Father Diabetes - insulin d ependent Father Heart disease Father Mother High blood pressure Mother Bleeding disorder Mother Relationship Condition Age at Onset Recorded Date/T augustus father Myocardial infarction 66 mother Hypertension Unknown sister Diabetes mellitus Unknown Cerebrovascular accident (CVA) Unknown sister Prediabetes Unknown brother Coronary artery disease Unknown Advance Directives Advance Directive Response Recorded Date/ Time Do you have a Healthcare 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 No July 12, 2025 8:20pm Chief Complaint and Reason for Visit Chief Complaint Admit Date RT HIP AND RT KNEE PAIN May 25 1:46pm Chief Complaint Admit Date RT HIP AND RT KNEE PAIN May 25 1:46pm abd pain July 12, 2025 7 :51pm SURGERY CLEARANCE (SELF) July 13, 025 7:58am Reason for Visit Admit Date HTN, goal below 130/80 July 13 7:58am Preop cardiovascular exam July 13, 2025 7:58am Chronic coronary artery disease July 13, 2025 7:58am Hyperlipidemia July 13, 2025 7 :58am Additional Source Comments INFORMATION SOURCE (unrecogn ized section and content) DATE CREATED AUTHOR 07/19/2021 [facility] DATE CREATED AUTHOR AUTHOR'S LUIS MIGUEL ATION 07/27/2025 [facility] Care Teams (unrecognized sec tion and content) Team Status: Active Member Role/Relationship Status Dates Brooke Richardson NP-Siomara Primary Care Provider Active Team Status: Inactive Member Role/Relationship Status Dates Brooke Richardson NP-C Primary Care Provider Active Start: May 12, 2025 End: May 12, 2025 FREDIS Dong Attending Provider Active St art: May 12, 2025 End: May 12, 2025 Brooke Richardson NP-[place] Referring Provider Active St art: May 12, 2025 End: May 12, 2025 Team Status: Inactive Member Role/Relationship Status Dates Brooke Richardson NP-[place] Primary Care Provider Active Start: May 25, 2025 End: May 25, 2025 FREDIS Dong Attending Provider Active St art: May 25, 2025 End: May 25, 2025 Brooke Richardson NP-[place] Referring Provider Active St art: May 25, 2025 End: May 25, 2025 Team Status: Active Member Role/Relationship Status Dates FREDIS Dong Primary care physician Active Team Status: Inactive Member Role/Relationship Status Dates FREDIS Dong Primary care physician Active Start: May 12, 2025 End: May 12, 2025 FREDIS Dong Attending physician Active S tart: May 12, 2025 End: May 12, 2025 Brooke Richardson NP-C Referring Provider Active St art: May 12, 2025 End: May 12, 2025 Team Status: Inactive Member Role/Relationship Status Dates Brooke Richardson NP-C Primary care physician Active Start: May 25, 2025 End: May 25, 2025 Brooke Richardson NP-C Attending physician Active S tart: May 25, 2025 End: May 25, 2025 Brooke Richardson SIGN LETTERER-C Referring Provider Active St art: May 25, 2025 End: May 25, 2025 Team Status: Inactive Member Role/Relationship Status Dates Brooke Richardson NP-C Primary care physician Active Start: July 12, 2025 End: July 12, 2025 Curt Quiñones MD Attending physician Active Sta rt: July 12, 2025 End: July 12, 2025 Curt Quiñones MD Emergency Department Physician Activ e Start: July 12, 2025 End: July 12, 2025 Team Status: Inactive Member Role/Relationship Status Dates Brooke Richardson NP-C Primary care physician Active Start: July 13, 2025 End: July 13, 2025 Brooke Richardson SIGN LETTERER-C Referring Provider Active St art: July 13, 2025 End: July 13, 2025 Dr. John Pérez , DO Attending physician Active Start: July 13, 2025 End: July 13, 2025 Goals (unrecognized section and content) Goals may be documented in a n alternate sectionGoals may be documented in an alternate section No Information AvailableGoals may be documented in an alternate sectionGoals may be documented in an alternate section REASON FOR VISIT (unrecogniz ed section and [...] BE BASED ON THE PRIMARY CLINICAL RECORDS. [facility] provides no warranty or guarantee of the accuracy or completeness of information in this document.
== END | disposition home or self-care (01) ==
LOC: CVS 14:54
PROVIDERS: PCP Nurse Practitioner Family; Referring Provider Orthopaedic Surgery; Visit Provider Orthopaedic Surgery
DX: M79.89 Other specified soft tissue disorders (principal)
CPT/HCPCS: 93971